=== PATIENT | female | born 2005 | race Caucasian/White ===

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

== ENCOUNTER 2025-01-23 06:40 | Emergency (ER) | payer OTHER, BC, MEDICAID, SELFPAY ==
--- OUTSIDE RECORDS SUMMARY | 2025-01-21 10:32 | XMS_ITS | Encounter Summary ---
Author Organization [facility] Address [address] [place] [address] Care Team Providers Care Associate Store Manager Name Role Phone Unavailable Primary Care Provider Unavailabl e Reason for Visit * Auth/Cert (Routine) Specialty Diagnoses / Procedures Referred By Josephine t Referred To Contact Multi Specialty Diagnoses History of colitis Melena Hematochezia Alternating constipation and diarrhea Easy bruising History of colitis Melena Hematochezia Alternating constipation and diarrhea Easy bruising Procedures NH COLONOSCOPY FLX DX W/COLLJ SPEC WHEN PFRMD NH COLONOSCOPY W/BIOPSY SINGLE/MULTIPLE NH COLORECTAL SCRN HI RISK IND NH COLSC FLX W/RMVL OF TUMOR POLYP LESION SNARE TQ NH COLSC FLX W/REMOVAL LESION BY HOT BX FORCEPS NH EGD TRANSORAL BIOPSY SINGLE/MULTIPLE NH EGD BALLOON DILATION ESOPHAGUS <30 MM DIAM NH EGD DILATION GASTRIC/DUODENAL STRICTURE NH COLON CA SCRN NOT HI RSK IND NH COLSC FLX WITH DIRECTED SUBMUCOSAL NJX ANY SBST COLONOSCOPY COLONOSCOPY COLONOSCOPY COLONOSCOPY COLONOSCOPY ESOPHAGOGASTRODUODENOSCOP Y ESOPHAGOGASTRODUODENOSCOP Y ESOPHAGOGASTRODUODENOSCOP Y Bj Cullen MD [address] [place] [address] [address] [place] [address] Phone: tel: fax: [facility] [address] [place] [phone] Phone: tel: fax: Referral ID Status Reason Start Date Expiration Date Visits Re quested Visits Authorized [id number] 1 1 Encounter Details Date Type Department Care Team (Latest Contact Info) Description 01/21/2025 10:32 AM CDT - 01/21/2025 2:57 PM CDT Hospital Encounter [facility] [address] [place] [address] [place] [phone] Bj Cullen MD [address] [place] [address] [address] [place] [address] Alpha-gal syndrome Discharge Disposition: Home or Self Care Social History Tobacco Use Types Packs/Day Years Used Date Smoking Tobacco: Never Smokeless Tobacco: Never Alcohol Use Standard Drinks/Week Comments Not Currently 0 (1 standard drink = 0.6 oz pur e alcohol) Comments No Sex and Gender Information Value Date Recorded Sex Assigned at Not on file Legal 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 Gender Identity Not on file Sexual Orientation Not on file documented as of this encounter Last Filed Vital Signs Vital Sign Reading Time Taken Comments Blood Pressure 122/74 01/21/2025 2:45 PM CDT Pulse 69 01/21/2025 2:45 PM CDT Temperature 36.4 C (97.5 F) 01/21/2025 1:25 PM CDT Respiratory Rate 12 01/21/2025 2:45 PM CDT Oxygen Saturation 100% 01/21/2025 2:45 PM CDT Inhaled Oxygen Concentration - - Weight 64.7 kg (142 lb 9.6 oz) 01/21/2025 11:05 AM CDT Height 160 cm (5' 3 ) 01/21/2025 11:05 AM CDT Body Mass Index 25.26 01/21/2025 11:05 AM CDT documented in this encounter Discharge Instructions * Discharge Instructions* Liset Castañeda, DARELL - 01/21/2025 1:33 PM CDT Colonoscopy / EGD Discharge Instructions: SPECIAL INSTRUCTIONS: Notify doctor if any of the following occur: severe pain, bright red blood in your stools or rectalbleeding, vomiting blood, temperature over 100 degrees F, black tarry stool. Gaseous discomfort is normal and expected immediately after your examination: belching and passing gas is normal, bending your knees while lying on your left side may relieve the gas, a heating pad set on low may be placed on your abdomen for discomfort, if you have unusual or severe pain that persists for more than 2 hours call your doctor. If a biopsy or polypectomy was done the doctor will contact you with the results. There may be a tiny amount of bleeding, if it persists call your doctor. Other DIET: 1. You may resume your normal diet. GENERAL INSTRUCTIONS: Call your surgeons office ([phone]) if there are any questions. If you are unable to reach him/her go to the nearest emergency room for evaluation. If you had a general or local anesthesia with sedation do not drink alcoholic beverages for 24 hours. Certain anesthetics and pain medications may produce nausea and vomiting. If these symptoms persist notify your physician. Due to the medications you have received today, do not drive or operate machinery for [address] are not to drive while taking any narcotic pain medication. EGD Findings: Normal-appearing esophagus Hill grade 3 hiatus, possible hiatal hernia, slightly irregular EG junction with mild erythema, biopsies obtained with cold forceps and retrieved for pathology Mild gastritis, linear, particular in the distal stomach, biopsies obtained with cold forceps undertreat for pathology Patent pylorus and normal-appearing duodenum Recommendations: -Await pathology., -Follow symptoms., -Will need to follow alpha gal diet and GERD diet: avoid spicy or highly condimented foods, food with high fat content, acid foods such as citrus or tomatoes, carbonated beverages and caffeine containing drinks, chocolate. Avoid NSAIDs (ibuprofen, aspirin, diclofenac, etc.) and alcohol. Avoid all tobacco products including smoking, vaping and/or chewing. Do not eat 4 hours before bed time. Do not lay down for 4 hours after eating. Colonoscopy Impression: -Normal colonoscopy to the cecum, with no evidence of neoplasia, diverticular disease, or mucosal abnormality., -Small internal hemorrhoids., -Moderate external hemorrhoids. Recommendations: -For colon cancer screening repeat colonoscopy at age 45 -Management of hemorrhoids with good hydration, goal of 64 oz of water per day, bowel hygiene with OTC fiber supplementation daily (Metamucil) with PRN use of Miralax; goal of 1-2 soft bowel movements per day with no pushing/straining. Recommend use of wet wipes or use of bidet for hygiene after bowel movements to prevent irritation/inflammation of hemorrhoids. Avoid using toilet paper as will produce more inflammation. Recommend Sitz baths 2-4 times per day to help with swelling of hemorrhoids and PRN use of topical OTC treatments (Preparation H). Return for follow-up and discussion of surgical options if symptoms from hemorrhoids do not improveafter 1-2 months. Resume anticoagulation and/or blood thinners: 2 day(s). * Attachments The following attachments cannot be sent through Care Everywhere. * Colonoscopy: Post op ([place]an) * EGD (Upper Endoscopy): Post op ([place]) * Hemorrhoids ([place]an) * Gastritis ([place]an) * Psyllium ([place]) documented in this encounter Medications at Time of Discharge EPINEPHrine (EPIPEN) 0.3 mg/0.3 mL Auto-Injector INJECT 0.3MG INTO THE MUSCLE ONCE DAILY NEEDED FOR ANAPHYLAXIS 12/23/2024 omeprazole (PriLOSEC) 40 mg Capsule, Delayed Release(E.C.) Take 1 Capsule by mouth daily. 12/12/2024 Isibloom 0.15-0.03 mg Tablet Take 1 Tablet by mouth daily. 11/28/2024 dicyclomine (BENTYL) 20 mg tablet Take 1 Tablet (20 mg) by mouth 3 times daily as needed for Pain. 20 Tablet 12/03/2024 ondansetron (ZOFRAN ODT) 4 mg Tablet, Rapid Dissolve Take 1 Tablet (4 mg) by mouth every 8 hours as needed for Nausea. Dissolve tablet on top of tongue, then swallow with saliva. 12 Tablet 12/03/2024 citalopram (CeleXA) 10 mg tablet Take 10 mg by mouth daily. 01/31/2020 documented as of this encounter H&P Notes * Bj Cullen MD - 01/21/2025 12:28 PM CDT I have reviewed the last H&P and examined the patient today and there are no changes. The plan for HOSPITAL ACCOUNT MANAGER anesthesia was reviewed and approved prior to administration of anesthesia. Source Note - Bj Cullen MD - 01/21/2025 12:28 PM CDT General Surgery Outpatient Clinic Note Patient: Ronen Almeida [id number] Chief Complaint: Subjective Establish Care (ED f/u from 12/03/24. Generalized abd pain RLQ. HX of Chron's Disease in family. HX of colitis. Needs CSP and EGD. Having 5 to 8 BM's per day. ) History of Present Illness: History of Present Illness The patient is a 19-year-old female presenting here for abdominal pain and possible colitis. She has experienced three episodes of colitis since 05/2024, characterized by nausea, persistent vomiting leading to hematemesis, and uncontrollable bowel movements. These episodes are accompanied byhot flashes, chills, hand cramps, and cognitive impairment. She reports severe abdominal pain during these episodes, but none today. She experiences mild pain during bowel movements, rating it as 3 or 4 out of 10, and occasional stomach cramps. She also reports melena every 3 to 4 days, describing her stools as tar-like in consistency. She has not observed fresh blood in her stools, except for a small amount when she first developed hemorrhoids. She experiences postprandial nausea, limiting her food intake to half a normal portion. She attempts to consume fresh vegetables but finds that they exacerbate her symptoms. She has bowel movements 5 to 8 times daily, with inconsistent stool consistency. She maintains hydration by drinking at least four 16-ounce bottles of water daily. She was previously on an acid automotive glass specialist at the age of 8 due to frequent vomiting, which was initially mistaken for heartburn. She continues to take Prilosec daily, reintroduced in 08/2024 by her primary care physician to manage her black stools. She has a history of seasonal allergies. She discontinued Celexa in 2021, which she was taking for anxiety and depression. She had a suicideattempt in 2019 and currently sees a therapist as needed. She had her adenoids removed at 6 months old and still has her tonsils. She reports easy bruising from minor bumps. PAST SURGICAL HISTORY: Adenoidectomy at 6 months old. 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 Alcohol: Does not drink alcohol anymore, last consumed in July 2024. Tobacco: Does not smoke actual tobacco or chew tobacco. Recreational Drugs: Smokes weed. FAMILY HISTORY - Maternal grandfather: Prostate cancer, currently undergoing treatment; Crohn's disease, requires an ostomy bag. - Paternal grandmother: Lymphatic cancer, currently in remission; ovarian cancer, currently in remission. - Negative for colon cancer. Allergies: No Known Allergies PMH: Past Medical History: Diagnosis Date Depression Generalized anxiety disorder PSH: Past Surgical History: Procedure Laterality Date HX ADENOIDECTOMY FH: Family History Problem Relation Name Age of Onset Cancer Maternal Grandmother Lymphoma Maternal Grandmother Crohn's Disease Maternal Grandfather Prostate Cancer Maternal Grandfather Colon Cancer Neg Hx SH: Social History Socioeconomic History Marital status: Single Tobacco Use Smoking status: Never Smokeless tobacco: Never Vaping Use Vaping status: Every Day Substance and Sexual Activity Alcohol use: Not Currently Drug use: Yes Types: Marijuana Social Drivers of Health Feeling Safe: Not At Risk (12/03/2024) Feeling Safe Patient has indicated abuse: : No Review of Systems: Behavioral/Psych: negative. Cardiovascular: negative. Constitutional: negative. Ears, nose, mouth, throat, and face: negative. Endocrine: negative. Eyes: negative. Gastrointestinal: positive for abdominal pain, change in bowel habits, constipation, diarrhea, dyspepsia, melena, nausea, and vomiting. Genitourinary:negative. Hematologic/lymphatic: positive for easy bruising. Integument/breast: negative. Musculoskeletal:negative. Neurological: negative. Respiratory: negative. Physical Exam: Objective Blood pressure 100/60, pulse 82, temperature 98 ??F (36.7 ??C), temperature source Temporal, height5' 3 (1.6 m), weight 66.2 kg (146 lb), last menstrual period 11/29/2024. Vitals: 12/16/24 0937 BP: 100/60 Pulse: 82 Temp: 98 ??F (36.7 ??C) Body mass index is 25.86 kg/m??. Physical Exam Constitutional: General: She is not in acute distress. Appearance: She is not ill-appearing, toxic-appearing or diaphoretic. HENT: Head: Normocephalic. Eyes: General: No scleral icterus. Conjunctiva/sclera: Conjunctivae normal. Cardiovascular: Rate and Rhythm: Normal rate. Pulmonary: Effort: Pulmonary effort is normal. Abdominal: General: Abdomen is flat. There is no distension. Tenderness: There is abdominal tenderness in the periumbilical area. There is no guarding or rebound. Musculoskeletal: General: No deformity or signs of injury. Skin: General: Skin is warm. Coloration: Skin is not jaundiced. Neurological: General: No focal deficit present. Mental Status: She is alert and oriented to person, place, and time. Psychiatric: Mood and Affect: Mood normal. Behavior: Behavior normal. Thought Content: Thought content normal. Judgment: Judgment normal. Results: Results Labs: Lab Results Component Value Date/Time CREAT 0.68 12/03/2024 10:15 PM Lab Results Component Value Date/Time CREAT 0.68 12/03/2024 10:15 PM BUN 8 12/03/2024 10:15 PM NA 135 (L) 12/03/2024 10:15 PM K 3.6 12/03/2024 10:15 PM CL 102 12/03/2024 10:15 PM CO2 18 (L) 12/03/2024 10:15 PM GFR >60 12/03/2024 10:15 PM Lab Results Component Value Date/Time WBC 7.6 12/03/2024 10:15 PM HGB 14.0 12/03/2024 10:15 PM HCT 39.5 12/03/2024 10:15 PM PLT 182 12/03/2024 10:15 PM MCV 86.8 12/03/2024 10:15 PM Lab Results Component Value Date/Time ALT 9 (L) 12/03/2024 10:15 PM AST 17 12/03/2024 10:15 PM ALKPHOS 49 12/03/2024 10:15 PM BILITOTAL 0.6 12/03/2024 10:15 PM No results found for: TSH , TSHULTRA , THYROIDSTIM , T3 , T3FREE , C0ABYDLB , T4 , T4FREE , TPO , THROIDAB , THYROIDMI No results found for: INR , PT , PROTIMEPOC Imaging: X-rays: Results for orders placed in visit on 01/31/20 XR KNEE 3 VW LEFT Narrative X-rays of the right knee were reviewed. No clear evidence of fracture or dislocation. Normal films. CT scan: Results for orders placed during the hospital encounter of 12/03/24 CT ABDOMEN PELVIS W CONTRAST Impression : 1. Relatively distended urinary bladder; correlate clinically for evidence of a urinary tract infection or urinary retention. 2. Trace free fluid in the dependent pelvis, most commonly physiologic. 3. Nonspecific splenomegaly. 4. No superimposed acute intra-abdominal abnormality; negative for acute appendicitis. US: No results found for this or any previous visit. Assessment and Plan: Problem List Items Addressed This Visit Digestive Nausea & vomiting Relevant Medications omeprazole (PriLOSEC) 40 mg Capsule, Delayed Release(E.C.) Hematemesis with nausea Relevant Medications omeprazole (PriLOSEC) 40 mg Capsule, Delayed Release(E.C.) Alternating constipation and diarrhea Relevant Medications omeprazole (PriLOSEC) 40 mg Capsule, Delayed Release(E.C.) Other Relevant Orders ALPHA-GAL PANEL CELIAC DISEASE ANTIBODIES US RIGHT UPR QUADRANT Melena Nervous Right lower quadrant abdominal pain Right upper quadrant abdominal pain Periumbilical abdominal pain Other History of colitis Relevant Orders ALPHA-GAL PANEL CELIAC DISEASE ANTIBODIES US RIGHT UPR QUADRANT Easy bruising Relevant Orders PROTIME-INR Other Visit Diagnoses Pre-operative clearance - Primary Relevant Orders CBC WITH DIFFERENTIAL COMPREHENSIVE METABOLIC PANEL Hematochezia Relevant Orders ALPHA-GAL PANEL CELIAC DISEASE ANTIBODIES US RIGHT UPR QUADRANT Assessment & Plan 1. Hematemesis and melena. These symptoms suggest potential bleeding in the upper gastrointestinal tract. An EGD is recommended for further investigation. She is advised to cease vaping due to its potential impact on the intestines and associated pain. Avoidance of carbonated drinks and alcohol is also recommended. Basic blood work will be conducted today to monitor for any blood loss. Will investigate for alpha gal and celiac disease. 2. Nausea and abdominal pain. These symptoms may be related to the gastrointestinal issues or could indicate a separate problem. An ultrasound of the gallbladder will be performed. If the ultrasound results are normal, a HIDA scan may be considered. 3. Alternating diarrhea and constipation. This symptoms, along with the abdominal pain and history of colitis, warrants a colonoscopy. She isencouraged to maintain a minimum daily water intake of 64 ounces. A fiber supplement, Metamucil, isrecommended, starting with half a tablespoon twice daily for a week, then increasing to a tablespoon. 4. History of colitis. Will proceed with colonoscopy with her EGD on 01/21/2025. If Crohn's disease or ulcerative colitis is diagnosed, medical management will be initiated, and she will be referred to a GI doctor in [place]. 5. Easy bruising. INR and PTT tests will be conducted due to her history of bleeding and easy bruising, which may indicate a coagulation defect. The assessment and plan for EGD and colonoscopy was discussed with Ronen Almeida. Indicationsfor the procedure and alternatives, with its potential benefits as well as risks, complications andconsequences were explained to her. The complications and risks discussed included: pain, bleeding,bloating, damage to any adjacent organs/structures, GI tract perforation, aspiration, requirement for further procedures, medication reactions. All questions were answered to the patient's satisfaction; she expressed understanding and provided consent to proceed with the plan. The assessment and plan was discussed with Ronen Almeida and/or her family, she showed understanding and agreed to proceed with the plan. All questions were answered to the patient's satisfaction. The author of this note, patient (or authorized patient relations representative), and all other persons present consent to the audio recording of this visit for charting documentation purposes. Bj Alanis MD TOBACCO COUNSELING She is not a tobacco/nicotine user. Blood pressure found to be within normal limits and the patient is without complaints. No physicianconsult required. * Bj Cullen MD - 01/21/2025 12:28 PM CDT General Surgery Outpatient Clinic Note Patient: Ronen Almeida [id number] Chief Complaint: Subjective Establish Care (ED f/u from 12/03/24. Generalized abd pain RLQ. HX of Chron's Disease in family. HX of colitis. Needs CSP and EGD. Having 5 to 8 BM's per day. ) History of Present Illness: History of Present Illness The patient is a 19-year-old female presenting here for abdominal pain and possible colitis. She has experienced three episodes of colitis since 05/2024, characterized by nausea, persistent vomiting leading to hematemesis, and uncontrollable bowel movements. These episodes are accompanied byhot flashes, chills, hand cramps, and cognitive impairment. She reports severe abdominal pain during these episodes, but none today. She experiences mild pain during bowel movements, rating it as 3 or 4 out of 10, and occasional stomach cramps. She also reports melena every 3 to 4 days, describing her stools as tar-like in consistency. She has not observed fresh blood in her stools, except for a small amount when she first developed hemorrhoids. She experiences postprandial nausea, limiting her food intake to half a normal portion. She attempts to consume fresh vegetables but finds that they exacerbate her symptoms. She has bowel movements 5 to 8 times daily, with inconsistent stool consistency. She maintains hydration by drinking at least four 16-ounce bottles of water daily. She was previously on an acid automotive glass specialist at the age of 8 due to frequent vomiting, which was initially mistaken for heartburn. She continues to take Prilosec daily, reintroduced in 08/2024 by her primary care physician to manage her black stools. She has a history of seasonal allergies. She discontinued Celexa in 2021, which she was taking for anxiety and depression. She had a suicideattempt in 2019 and currently sees a therapist as needed. She had her adenoids removed at 6 months old and still has her tonsils. She reports easy bruising from minor bumps. PAST SURGICAL HISTORY: Adenoidectomy at 6 months old. 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 Alcohol: Does not drink alcohol anymore, last consumed in July 2024. Tobacco: Does not smoke actual tobacco or chew tobacco. Recreational Drugs: Smokes weed. FAMILY HISTORY - Maternal grandfather: Prostate cancer, currently undergoing treatment; Crohn's disease, requires an ostomy bag. - Paternal grandmother: Lymphatic cancer, currently in remission; ovarian cancer, currently in remission. - Negative for colon cancer. Allergies: No Known Allergies PMH: Past Medical History: Diagnosis Date Depression Generalized anxiety disorder PSH: Past Surgical History: Procedure Laterality Date HX ADENOIDECTOMY FH: Family History Problem Relation Name Age of Onset Cancer Maternal Grandmother Lymphoma Maternal Grandmother Crohn's Disease Maternal Grandfather Prostate Cancer Maternal Grandfather Colon Cancer Neg Hx SH: Social History Socioeconomic History Marital status: Single Tobacco Use Smoking status: Never Smokeless tobacco: Never Vaping Use Vaping status: Every Day Substance and Sexual Activity Alcohol use: Not Currently Drug use: Yes Types: Marijuana Social Drivers of Health Feeling Safe: Not At Risk (12/03/2024) Feeling Safe Patient has indicated abuse: : No Review of Systems: Behavioral/Psych: negative. Cardiovascular: negative. Constitutional: negative. Ears, nose, mouth, throat, and face: negative. Endocrine: negative. Eyes: negative. Gastrointestinal: positive for abdominal pain, change in bowel habits, constipation, diarrhea, dyspepsia, melena, nausea, and vomiting. Genitourinary:negative. Hematologic/lymphatic: positive for easy bruising. Integument/breast: negative. Musculoskeletal:negative. Neurological: negative. Respiratory: negative. Physical Exam: Objective Blood pressure 100/60, pulse 82, temperature 98 ??F (36.7 ??C), temperature source Temporal, height5' 3 (1.6 m), weight 66.2 kg (146 lb), last menstrual period 11/29/2024. Vitals: 12/16/24 0937 BP: 100/60 Pulse: 82 Temp: 98 ??F (36.7 ??C) Body mass index is 25.86 kg/m??. Physical Exam Constitutional: General: She is not in acute distress. Appearance: She is not ill-appearing, toxic-appearing or diaphoretic. HENT: Head: Normocephalic. Eyes: General: No scleral icterus. Conjunctiva/sclera: Conjunctivae normal. Cardiovascular: Rate and Rhythm: Normal rate. Pulmonary: Effort: Pulmonary effort is normal. Abdominal: General: Abdomen is flat. There is no distension. Tenderness: There is abdominal tenderness in the periumbilical area. There is no guarding or rebound. Musculoskeletal: General: No deformity or signs of injury. Skin: General: Skin is warm. Coloration: Skin is not jaundiced. Neurological: General: No focal deficit present. Mental Status: She is alert and oriented to person, place, and time. Psychiatric: Mood and Affect: Mood normal. Behavior: Behavior normal. Thought Content: Thought content normal. Judgment: Judgment normal. Results: Results Labs: Lab Results Component Value Date/Time CREAT 0.68 12/03/2024 10:15 PM Lab Results Component Value Date/Time CREAT 0.68 12/03/2024 10:15 PM BUN 8 12/03/2024 10:15 PM NA 135 (L) 12/03/2024 10:15 PM K 3.6 12/03/2024 10:15 PM CL 102 12/03/2024 10:15 PM CO2 18 (L) 12/03/2024 10:15 PM GFR >60 12/03/2024 10:15 PM Lab Results Component Value Date/Time WBC 7.6 12/03/2024 10:15 PM HGB 14.0 12/03/2024 10:15 PM HCT 39.5 12/03/2024 10:15 PM PLT 182 12/03/2024 10:15 PM MCV 86.8 12/03/2024 10:15 PM Lab Results Component Value Date/Time ALT 9 (L) 12/03/2024 10:15 PM AST 17 12/03/2024 10:15 PM ALKPHOS 49 12/03/2024 10:15 PM BILITOTAL 0.6 12/03/2024 10:15 PM No results found for: TSH , TSHULTRA , THYROIDSTIM , T3 , T3FREE , [id number] , T4 , T4FREE , TPO , THROIDAB , THYROIDMI No results found for: INR , PT , PROTIMEPOC Imaging: X-rays: Results for orders placed in visit on 01/31/20 XR KNEE 3 VW LEFT Narrative X-rays of the right knee were reviewed. No clear evidence of fracture or dislocation. Normal films. CT scan: Results for orders placed during the hospital encounter of 12/03/24 CT ABDOMEN PELVIS W CONTRAST Impression : 1. Relatively distended urinary bladder; correlate clinically for evidence of a urinary tract infection or urinary retention. 2. Trace free fluid in the dependent pelvis, most commonly physiologic. 3. Nonspecific splenomegaly. 4. No superimposed acute intra-abdominal abnormality; negative for acute appendicitis. US: No results found for this or any previous visit. Assessment and Plan: Problem List Items Addressed This Visit Digestive Nausea & vomiting Relevant Medications omeprazole (PriLOSEC) 40 mg Capsule, Delayed Release(E.C.) Hematemesis with nausea Relevant Medications omeprazole (PriLOSEC) 40 mg Capsule, Delayed Release(E.C.) Alternating constipation and diarrhea Relevant Medications omeprazole (PriLOSEC) 40 mg Capsule, Delayed Release(E.C.) Other Relevant Orders ALPHA-GAL PANEL CELIAC DISEASE ANTIBODIES US RIGHT UPR QUADRANT Melena Nervous Right lower quadrant abdominal pain Right upper quadrant abdominal pain Periumbilical abdominal pain Other History of colitis Relevant Orders ALPHA-GAL PANEL CELIAC DISEASE ANTIBODIES US RIGHT UPR QUADRANT Easy bruising Relevant Orders PROTIME-INR Other Visit Diagnoses Pre-operative clearance - Primary Relevant Orders CBC WITH DIFFERENTIAL COMPREHENSIVE METABOLIC PANEL Hematochezia Relevant Orders ALPHA-GAL PANEL CELIAC DISEASE ANTIBODIES US RIGHT UPR QUADRANT Assessment & Plan 1. Hematemesis and melena. These symptoms suggest potential bleeding in the upper gastrointestinal tract. An EGD is recommended for further investigation. She is advised to cease vaping due to its potential impact on the intestines and associated pain. Avoidance of carbonated drinks and alcohol is also recommended. Basic blood work will be conducted today to monitor for any blood loss. Will investigate for alpha gal and celiac disease. 2. Nausea and abdominal pain. These symptoms may be related to the gastrointestinal issues or could indicate a separate problem. An ultrasound of the gallbladder will be performed. If the ultrasound results are normal, a HIDA scan may be considered. 3. Alternating diarrhea and constipation. This symptoms, along with the abdominal pain and history of colitis, warrants a colonoscopy. She isencouraged to maintain a minimum daily water intake of 64 ounces. A fiber supplement, Metamucil, isrecommended, starting with half a tablespoon twice daily for a week, then increasing to a tablespoon. 4. History of colitis. Will proceed with colonoscopy with her EGD on 01/21/2025. If Crohn's disease or ulcerative colitis is diagnosed, medical management will be initiated, and she will be referred to a GI doctor in [place]. 5. Easy bruising. INR and PTT tests will be conducted due to her history of bleeding and easy bruising, which may indicate a coagulation defect. The assessment and plan for EGD and colonoscopy was discussed with Ronen Almeida. Indicationsfor the procedure and alternatives, with its potential benefits as well as risks, complications andconsequences were explained to her. The complications and risks discussed included: pain, bleeding,bloating, damage to any adjacent organs/structures, GI tract perforation, aspiration, requirement for further procedures, medication reactions. All questions were answered to the patient's satisfaction; she expressed understanding and provided consent to proceed with the plan. The assessment and plan was discussed with Ronen Almeida and/or her family, she showed understanding and agreed to proceed with the plan. All questions were answered to the patient's satisfaction. The author of this note, patient (or authorized patient relations representative), and all other persons present consent to the audio recording of this visit for charting documentation purposes. Bj Alanis MD TOBACCO COUNSELING She is not a tobacco/nicotine user. Blood pressure found to be within normal limits and the patient is without complaints. No physicianconsult required. documented in this encounter OR Notes * Operative Report - Bj Cullen MD - 01/21/2025 1:22 PM CDT Colonoscopy Procedure Note Procedure: Colonoscopy --diagnostic Pre-operative Diagnosis: Alternating constipation and diarrhea, melena, history of colitis, abdominal pain Post-operative Diagnosis: normal, hemorrhoids Indications: Active Problems: Nausea & vomiting Hematemesis with nausea Alternating constipation and diarrhea Melena Right lower quadrant abdominal pain Periumbilical abdominal pain History of colitis Alpha-gal syndrome Sedation: By anesthesia. Procedure Details Informed consent was obtained for the procedure, including sedation. Risks of perforation, hemorrhage, adverse drug reaction and aspiration were discussed. Plan for sedation/anesthesia with a supervised HOSPITAL ACCOUNT MANAGER provider was discussed. The patient was placed in the left lateral decubitus position. Based on the pre- procedure assessment, including review of the patient's medical history, medications, allergies, and review of systems,the patient had been deemed to be an appropriate candidate for conscious sedation; and was therefore sedated by anesthesia. The patient was monitored continuously with ECG tracing, pulse oximetry, blood pressure monitoring, and direct observations. A rectal examination was performed. The Olympus colonoscope was inserted into the rectum and advanced under direct vision to the cecum, which was identified by the ileocecal valve and appendiceal orifice. The quality of the colonic preparation was excellent, please see Conway score below. A carefulinspection was made as the colonoscope was withdrawn, including a retroflexed view of the rectum; findings and interventions are described below. Appropriate photodocumentation was obtained. Findings: -normal colonic mucosa throughout -hemorrhoids (internal and external), Moderate in size Conway bowel preparation scale score: Location and score: right colon 3, transverse colon 3, left colon 3. Total Conway score: 9. Score 0: Unprepared colon with mucosa not seen because of solid stool that cannot be cleared Score 1: Portion of the mucosa of the colon segment seen, but other areas of the colon segment not seen well because of staining, residual stool, and/or opaque liquid Score 2: Minor amount of residual staining, small fragments of stool and/or opaque liquid, but mostmucosa of the colon segment seen well Score 3: Entire mucosa of colon segment seen well with no residual staining, small fragments of stool, and/or opaque liquid Specimens: None Complications: None; patient tolerated the procedure well. Estimated Blood Loss: Nil. Attending Attestation: I performed the procedure. Impression: -Normal colonoscopy to the cecum, with no evidence of neoplasia, diverticular disease, or mucosal abnormality., -Small internal hemorrhoids., -Moderate external hemorrhoids. Recommendations: -For colon cancer screening repeat colonoscopy at age 45 -Management of hemorrhoids with good hydration, goal of 64 oz of water per day, bowel hygiene with OTC fiber supplementation daily (Metamucil) with PRN use of Miralax; goal of 1-2 soft bowel movements per day with no pushing/straining. Recommend use of wet wipes or use of bidet for hygiene after bowel movements to prevent irritation/inflammation of hemorrhoids. Avoid using toilet paper as will produce more inflammation. Recommend Sitz baths 2-4 times per day to help with swelling of hemorrhoids and PRN use of topical OTC treatments (Preparation H). Return for follow-up and discussion of surgical options if symptoms from hemorrhoids do not improveafter 1-2 months. Resume anticoagulation and/or blood thinners: 2 day(s). Bj Alanis MD CC: No primary care provider on file. * Operative Report - Bj Cullen MD - 01/21/2025 1:20 PM CDT Ronen Almeida 2005 CSN:[id number] 01/21/2025 Esophagogastroduodenoscopy Procedure Note Referring Physician: No primary care provider on file. Procedure: Esophagogastroduodenoscopy --diagnostic, with biopsy Pre op Diagnosis: Active Problems: Nausea & vomiting Hematemesis with nausea Alternating constipation and diarrhea Melena Right lower quadrant abdominal pain Periumbilical abdominal pain History of colitis Alpha-gal syndrome Post op Diagnosis: Possible sliding hiatal hernia Mild gastritis Sedation: By anesthesia. Procedure Details Patient identification and proposed procedure were verified prior to the procedure by the physicianand nurse. Informed consent was obtained for the procedure, including conscious sedation, risks of infection, perforation, intraprocedural and post procedural hemorrhage, adverse drug reaction, missed cancer, aspiration and complications which could lead to were discussed. Plan for sedation/anesthesia with a supervised HOSPITAL ACCOUNT MANAGER provider was discussed. The patient was placed in the left lateral decubitus position. Based on the pre- procedure assessment, including review of the patient's medical history, medications, allergies, and review of systems,she had been deemed to be an appropriate candidate for conscious sedation; she was therefore sedated by anesthesia. She was monitored continuously with ECG tracing, pulse oximetry, blood pressure monitoring, and direct observation. The Olympus gastroscope was inserted into the mouth and advanced under direct vision to thesecond portion of the duodenum. A careful inspection was made as the gastroscope was withdrawn, including a retroflexed view of the proximal stomach; findings and interventions are described below. Appropriate photodocumentation was obtained. Findings: Normal-appearing esophagus Hill grade 3 hiatus, possible hiatal hernia, slightly irregular EG junction with mild erythema, biopsies obtained with cold forceps and retrieved for pathology Mild gastritis, linear, particular in the distal stomach, biopsies obtained with cold forceps undertreat for pathology Patent pylorus and normal-appearing duodenum Complications: None; patient tolerated the procedure well. Estimated Blood Loss: Nil. Attending Attestation: I performed the procedure. Recommendations: -Await pathology., -Follow symptoms., -Will need to follow alpha gal diet and GERD diet: avoid spicy or highly condimented foods, food with high fat content, acid foods such as citrus or tomatoes, carbonated beverages and caffeine containing drinks, chocolate. Avoid NSAIDs (ibuprofen, aspirin, diclofenac, etc.) and alcohol. Avoid all tobacco products including smoking, vaping and/or chewing. Do not eat 4 hours before bed time. Do not lay down for 4 hours after eating. Bj Alanis MD CC: No primary care provider on file. documented in this encounter Plan of Treatment Not on file documented as of this encounter Procedures Procedure Name Priority Date/Time Associated Diagnosis Comments NH EGD DILATION GASTRIC/DUODENAL STRICTURE 01/21/2025 1:21 PM CDT History of colitis Melena Hematochezia Alternating constipation and diarrhea Easy bruising NH EGD BALLOON DILATION ESOPHAGUS <30 MM DIAM 01/21/2025 1:21 PM CDT History of colitis Melena Hematochezia Alternating constipation and diarrhea Easy bruising NH EGD TRANSORAL BIOPSY SINGLE/MULTIPLE 01/21/2025 1:21 PM CDT History of colitis Melena Hematochezia Alternating constipation and diarrhea Easy bruising NH COLSC FLX W/REMOVAL LESION BY HOT BX FORCEPS 01/21/2025 1:21 PM CDT History of colitis Melena Hematochezia Alternating constipation and diarrhea Easy bruising NH COLSC FLX W/RMVL OF TUMOR POLYP LESION SNARE TQ 01/21/2025 1:21 PM CDT History of colitis Melena Hematochezia Alternating constipation and diarrhea Easy bruising NH COLORECTAL SCRN HI RISK IND 01/21/2025 1:21 PM CDT History of colitis Melena Hematochezia Alternating constipation and diarrhea Easy bruising NH COLONOSCOPY W/BIOPSY SINGLE/MULTIPLE 01/21/2025 1:21 PM CDT History of colitis Melena Hematochezia Alternating constipation and diarrhea Easy bruising NH COLONOSCOPY FLX DX W/COLLJ SPEC WHEN PFRMD 01/21/2025 1:21 PM CDT History of colitis Melena Hematochezia Alternating constipation and diarrhea Easy bruising PATHOLOGY Pathology 01/21/2025 1:02 PM CDT History of colitis Melena Hematochezia Alternating constipation and diarrhea Easy bruising HCG QUALITATIVE, URINE Routine 01/21/2025 11:11 AM CDT documented in this encounter Results * PATHOLOGY (01/21/2025 1:02 PM CDT) CASE REPORT Surgical Pathology Report Case: [id number] Authorizing Provider: Bj Cullen Collected: 01/21/2025 01:02 PM MD [place] Ordering Location: [facility] Received: 01/22/2025 06:40 AM [facility] Pathologist: Jose Medina MD Specimens: A) - Stomach, antrum B) - Stomach, body C) - GE junction 9:42 AM CDT [facility] [employer] [facility] FINAL DIAGNOSIS A. Stomach, antrum, biopsy - benign gastric mucosa with no significant inflammation, superficial biopsy. / B. Stomach, body, biopsy - benign gastric mucosa with no significant inflammation. / C. GE junction, biopsy - benign gastric mucosa with mild chronic inflammation - no evidence of goblet cell metaplasia, dysplasia, or malignancy. Jose Medina MD [id number] 9:42 AM CDT [facility] at 0942 CDT GROSS DESCRIPTION A. Received in formalin labeled Anabaptism -stomach biopsy of antrum is a single fragment of peña-pink soft tissue, 0.2 cm in greatest dimension. The specimen is submitted entirely in A1. B. Received in formalin labeled Anabaptism -stomach biopsy of gastric body is a single fragment of peña-pink soft tissue, 0.2 cm in greatest dimension. The specimen is submitted entirely in B1. C. Received in formalin labeled Anabaptism -GE junction biopsy is a single fragment of peña-pink soft tissue, 0.2 cm in greatest dimension. The specimen is submitted entirely in C1. Grossed by: Haritha Villeda MS, PA (ASC)CM 5 9:42 AM CDT [facility] OPERATIVE PROCEDURE 1: COLONOSCOPY 2: ESOPHAGOGASTRODUODENOSCO PY 5 9:42 AM T [facility] CLINICAL INFORMATION Z87.19-History of colitis K92.1-Melena K92.1-Hematochezia R19.8-Alternating constipation and diarrhea R23.3-Easy bruising 5 9:42 AM T [facility] COMMENT The [employer] voice-activated dictation system may have been used in the creation of this report. Inherent to this system is the possibility of errors in syntax, grammar, punctuation, or other areas that could impact interpretation. If there are interpretive questions about the report, please contact the performing pathologist. Unless gross only is specified in the diagnosis, the microscopic examination substantiates the above cited diagnosis. The performance characteristics of all immunohistochemical stains cited in this report (if any) were determined by the [facility] of [facility] in compliance with CLIA'88 regulations. Some of these tests rely on the use of analyte specific reagents and are subject to specific labeling requirements by the FDA. All controls show appropriate reactivity. This testing was developed by the [facility] of [facility]. It has not been cleared or approved by the FDA. The FDA has determined that such clearance or approval is not necessary. 5 9:42 AM T [facility] Tissue ENTIRE STOMACH / Unknown Collection / Unknown 01/21/2025 1:02 PM CDT 01/22/2025 6:40 AM CDT Tissue specimen (specimen) ENTIRE STOMACH / Unknown 01/21/2025 1:02 PM CDT 01/22/2025 6:40 AM CDT Tissue specimen (specimen) (GE junction) 01/21/2025 1:03 PM CDT 01/22/2025 6:40 AM CDT us Bj Alanis MD PATHOLOGY/CYTOL OGY ORDERABLES Final Result Performing Organization Address [facility] Co de Phone Number [facility] CLIA # [id number] [facility] [address] * (ABNORMAL) HCG QUALITATIVE, URINE (01/21/2025 11:11 AM CDT) HCG QUAL URINE Negative Negative 01/21/2025 11:16 AM CDT [facility] COLOR UA Dark Yellow Pale to Dark Yellow 01/21/2025 11:16 AM CDT [facility] CLARITY UA Slightly Cloudy(A) Clear 01/21/2025 11:16 AM CDT [facility] Urine URINE SPECIMEN OBTAINED BY CLEAN CATCH PROCEDURE / Unknown Collection / Unknown 01/21/2025 11:11 AM CDT 01/21/2025 11:11 AM CDT us Bj Alanis MD URINE ORDERABLE S Final Result Performing Organization Address [facility] Co de Phone Number [facility] CLIA # [id number] [address] [place] [phone] documented in this encounter Visit Diagnoses Diagnosis History of colitis Melena Blood in stool Hematochezia Blood in stool Alternating constipation and diarrhea Other symptoms involving digestive system Easy bruising Other symptoms involving skin and integumentary tissues Alpha-gal syndrome Hematemesis with nausea Nausea & vomiting Nausea with vomiting Periumbilical abdominal pain Abdominal pain, periumbilic Right lower quadrant abdominal pain Abdominal pain, right lower quadrant documented in this encounter Admitting Diagnoses Diagnosis Alternating constipation and diarrhea Other symptoms involving digestive system History of colitis Melena Blood in stool documented in this encounter Administered Medications Inactive Administered Medications - up to 3 most recent administrations Medication Order MAR Action Action Date Dose Rate Site diphenhydrAMINE (BENADRYL) injection 12.5 mg 12.5 mg, IV, ONE TIME ONLY, 1 dose, On Mon01/21/25 at 1345, Routine Given 01/21/2025 1:51 PM CDT 12.5 mg lactated ringers infusion IV, at 125 mL/hr, CONTINUOUS, Starting on Mon01/21/25 at 1115, Until Mon01/21/25 at 1658, Routine New Bag 01/21/2025 12:54 PM CDT lactated ringers infusion IV, at 125 mL/hr, POST-PROCEDURE CONTINUOUS, Starting on Mon01/21/25 at 1130, Until Mon01/21/25 at 1658, Routine, PACU New Bag 01/21/2025 2:17 PM CDT 125 mL/hr Started by Another Clinician 01/21/2025 1:25 PM CDT 125 mL/hr naloxone (NARCAN) 0.4 mg/mL injection 0.1-0.4 mg 0.1-0.4 mg, IV, SEE ADMIN INSTRUCTIONS, Starting on Mon01/21/25 at 1115, Until Mon01/21/25 at 1658, Routine, PACU ondansetron (ZOFRAN) 4 mg/2 mL injection 4 mg 4 mg, IV, POST-PROCEDURE ONCE PRN, 1 dose, Starting on Mon01/21/25 at 1116, Until Mon01/21/25 at 1330, Nausea/Emesis, Routine, PACU Given 01/21/2025 1:30 PM CDT 4 mg ondansetron (ZOFRAN) 4 mg/2 mL injection 4 mg 4 mg, IV, ONE TIME ONLY, 1 dose, On Mon01/21/25 at 1345, Routine Given 01/21/2025 1:46 PM CDT 4 mg prochlorperazine (COMPAZINE) injection 5 mg 5 mg, IV, ONE TIME ONLY, 1 dose, On Mon01/21/25 at 1415, Routine Given 01/21/2025 2:17 PM CDT 5 mg scopolamine (TRANSDERM-SCOP) 1 mg/72 hr transdermal patch 1 Patch 1 Patch, Transdermal, ONE TIME ONLY, 1 dose, On Mon01/21/25 at 1445, Routine Applied 01/21/2025 2:45 PM CDT 1 Patch Ear, Left documented in this encounter Active and Recently Administered Medications Times are shown in CDT. Scheduled Medication Order 01/19/2025 01/20/2025 01/21/2025 diphenhydrAMINE (BENADRYL) injection 12.5 mg (COMPLETED) 12.5 mg, IV, ONE TIME ONLY, 1 dose, On Mon01/21/25 at 1345, Routine 1351 (Given - Provid er: Liset Castañeda RN) naloxone (NARCAN) 0.4 mg/mL injection 0.1-0.4 mg 0.1-0.4 mg, IV, SEE ADMIN INSTRUCTIONS, Starting on Mon01/21/25 at 1115, Until Mon01/21/25 at 1658, Routine, PACU ondansetron (ZOFRAN) 4 mg/2 mL injection 4 mg (COMPLETED) 4 mg, IV, ONE TIME ONLY, 1 dose, On Mon01/21/25 at 1345, Routine 1346 (Given - Provid er: Liset Castañeda RN) prochlorperazine (COMPAZINE) injection 5 mg (COMPLETED) 5 mg, IV, ONE TIME ONLY, 1 dose, On Mon01/21/25 at 1415, Routine 1417 (Given - Provid er: Liset Castañeda RN) scopolamine (TRANSDERM-SCOP) 1 mg/72 hr transdermal patch 1 Patch 1 Patch, Transdermal, ONE TIME ONLY, 1 dose, On Mon01/21/25 at 1445, Routine 1445 (Applied - Prov ider: Liset Castañeda RN)1457 (Due: Removed - Provider: PROVIDER, DISCHARGE PATIENT - Comment: Time automatically adjusted from order being discontinued) Continuous Medication Order 01/19/2025 01/20/2025 01/21/2025 lactated ringers infusion IV, at 125 mL/hr, CONTINUOUS, Starting on Mon01/21/25 at 1115, Until Mon01/21/25 at 1658, Routine 1254 (New Bag - Prov ider: Magnus Beltran CRNA)1318 (Fluid Volume - Provider: Magnus Beltran CRNA)1658 (Due: Order Ending - Provider: PROVIDER, DISCHARGE PATIENT - Comment: [Order ends at this time. Document the following action when infusion is complete: Stopped]) lactated ringers infusion IV, at 125 mL/hr, POST-PROCEDURE CONTINUOUS, Starting on Mon01/21/25 at 1130, Until Mon01/21/25 at 1658, Routine, PACU 1325 (Started by Ano ther Clinician - Provider: Liset Castañeda RN - Comment: 600 ml ltc)1417 (New Bag - Provider: Liset Castañeda RN)1447 (Stopped - Provider: Liset Castañeda RN - Comment: 500 ml ltc) PRN Medication Order 01/19/2025 01/20/2025 01/21/2025 ondansetron (ZOFRAN) 4 mg/2 mL injection 4 mg (COMPLETED) 4 mg, IV, POST-PROCEDURE ONCE PRN, 1 dose, Starting on Mon01/21/25 at 1116, Until Mon01/21/25 at 1330, Nausea/Emesis, Routine, PACU 1330 (Given - Provid er: Liset Castañeda RN) documented in this encounter
--- OUTSIDE RECORDS SUMMARY | 2025-01-21 12:46 | XMS_ITS | Encounter Summary ---
Author Organization [facility] Address [address] [place] [address] Care Team Providers Care Director Of Planning Name Role Phone Unavailable Primary Care Provider Unavailabl e Reason for Visit * Auth/Cert (Routine) Specialty Diagnoses / Procedures Referred By Josephine t Referred To Contact Multi Specialty Diagnoses History of colitis Melena Hematochezia Alternating constipation and diarrhea Easy bruising History of colitis Melena Hematochezia Alternating constipation and diarrhea Easy bruising Procedures VA COLONOSCOPY FLX DX W/COLLJ SPEC WHEN PFRMD VA COLONOSCOPY W/BIOPSY SINGLE/MULTIPLE VA COLORECTAL SCRN HI RISK IND VA COLSC FLX W/RMVL OF TUMOR POLYP LESION SNARE TQ VA COLSC FLX W/REMOVAL LESION BY HOT BX FORCEPS VA EGD TRANSORAL BIOPSY SINGLE/MULTIPLE VA EGD BALLOON DILATION ESOPHAGUS <30 MM DIAM VA EGD DILATION GASTRIC/DUODENAL STRICTURE VA COLON CA SCRN NOT HI RSK IND VA COLSC FLX WITH DIRECTED SUBMUCOSAL NJX ANY SBST COLONOSCOPY COLONOSCOPY COLONOSCOPY COLONOSCOPY COLONOSCOPY ESOPHAGOGASTRODUODENOSCOP Y ESOPHAGOGASTRODUODENOSCOP Y ESOPHAGOGASTRODUODENOSCOP Y Bj Cullen MD [address] [place] [address] [address] [place] [address] Phone: tel: fax: [facility] [address] [place] [phone] Phone: tel: fax: Referral ID Status Reason Start Date Expiration Date Visits Re quested Visits Authorized [id number] 1 1 Encounter Details Date Type Department Care Team (Late st Contact Info) Description 01/21/2025 12:46 PM CDT Anesthesia Event [facility] [address] [place] [phone] Beltran Magnus PAMELA Alfaro [address] [place] [phone] Shey YuanPAMELA [address] [place] [address], [place] [phone] Anesthesia Record Procedure Summary Procedure Name Responsible Anesthesiologist Anesthesia Start Time Anesthesia Stop Time COLONOSCOPY (Anus) Magnus Beltran CRNA 01/21/25 1246 01/21/25 1325 Events Date Time Event Comment 01/21/2025 1114 AN Equip Check Anesthesia eq uipment and materials checked in accordance with local policy. 1142 1246 An Start 1246 An Start Data 1246 In Room This event disp lays the In Room time documented in the Surgical Log. Deleting this event will not remove it from the log but will remove it from the Grid and Graph timeline. 1252 Pre-Induction Immediate pre- induction anesthetic assessment performed. Vital signs as noted on graphic. 1252 An Induction 1252 Anesthesia Ready 1254 Procedure Start This event d isplays the Procedure Start time documented in the Surgical Log. Deleting this event will not remove it from the log but will remove it from the Grid and Graph timeline. 1319 Procedure Stop This event di splays the Procedure Stop time documented in the Surgical Log. Deleting this event will not remove it from the log but will remove it from the Grid and Graph timeline. 1320 an stop data 1320 Out of Room This event disp lays the Out of Room time documented in the Surgical Log. Deleting this event will not remove it from the log but will remove it from the Grid and Graph timeline. 1325 An Stop 1325 Hand-off to Receiving Clinic bryan Meds Name Total midazolam (VERSED) 1 mg/mL injection 2 mg lidocaine PF (XYLOCAINE MPF) 2% injectio n 2 mL propofol (DIPRIVAN) 10 mg/mL injection 142.28 mg lactated ringers infusion 400 mL * Agents Name O2 * Blood No blood administrations on file. Lines, Drains, and Airways Type Details Placement Removal Peripheral IV Orientation: Left, Posterior; Location: Hand; Gauge: 20 gauge; Needle Length: 1.16 in length; Patient Tolerance: tolerated well; Removal Indication: removed per policy, no longer indicated, removed per order; Removal Interventions: direct pressure, catheter intact 01/21/25 1111 by Cary Mitchell RN 01/21/25 1449 by Liset Castañeda RN documented in this encounter Social History Tobacco Use Types Packs/Day Years Used Date Smoking Tobacco: Never Smokeless Tobacco: Never Alcohol Use Standard Drinks/Week Comments Not Currently 0 (1 standard drink = 0.6 oz pur e alcohol) Comments No Sex and Gender Information Value Date Recorded Sex Assigned at Not on file 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 I completed my handoff to the receiving nurse during which we: 1. Identified the patient 2. Identified the responsible provider 3. Reviewed the pertinent medical history 4. Discussed the surgical course 5. Reviewed intra-op anesthesia management and issues during anesthesia 6. Set expectations for post-procedure period 7. Orders as necessary and appropriate for continuation of care are present in Epic. 8. Allowed opportunity for questions and acknowledgement of understanding. Vital Signs:phase 2 recovery stable Vitals Value Taken Time BP Temp Resp SpO2 Pulse Heart Rate 1:27 PM Magnus Beltran CRNA * Anesthesia Preprocedure Evaluation - Angeli Villegas CRNA - 01/21/2025 11:41 AM CDT Relevant Problems No relevant active problems Anesthesia Evaluation Patient summary reviewed and Nursing notes reviewed Airway Mallampati: II TM distance: >3 FB Neck ROM: full Dental (+) natural Pulmonary - normal exam breath sounds clear to auscultation ROS comment: Vapes and smokes marijuana daily; last smoked 01/20 pm Cardiovascular - negative ROS and normal exam Neuro/Psych (+) psychiatric history GI/Hepatic/Renal - negative ROS (+) bowel prep Endo/Other - negative ROS Abdominal - normal exam Anesthesia History No history of anesthetic complications. Latest Reference Range & Units 01/21/25 11:11 HCG QUAL URINE Negative Negative Anesthesia Plan ASA Final: 1 MAC N/A induction NPO status > 8 hours Anesthetic plan and risks discussed with Patient. Plan discussed with Cemetery Workers Supervisor and Surgeon/Proceduralists. Post-op Pain Control Plan to use Per surgeon and IV or IM medication for post-op pain control. documented in this encounter Plan of Treatment Not on file documented as of this encounter Visit Diagnoses Not on filedocumented in this encounter Administered Medications Inactive Administered Medications - up to 3 most recent administrations Medication Order MAR Action Action Date Dose Rate Site lactated ringers infusion IV, at 125 mL/hr, CONTINUOUS, Starting on Mon01/21/25 at 1115, Until Mon01/21/25 at 1658, Routine New Bag 01/21/2025 12:54 PM CDT lidocaine PF 2% (XYLOCAINE MPF) injection IV, INTRA-PROCEDURE PRN, Starting on Mon01/21/25 at 1252, Until Mon01/21/25 at 1328, Routine, Anesthesia Intra-op Given 01/21/2025 12:52 PM CDT 2 mL midazolam (VERSED) injection IV, INTRA-PROCEDURE PRN, Starting on Mon01/21/25 at 1252, Until Mon01/21/25 at 1328, Routine, Anesthesia Intra-op Given 01/21/2025 12:52 PM CDT 2 mg propofoL (DIPRIVAN) injection IV, INTRA-PROCEDURE CONTINUOUS PRN, Starting on Mon01/21/25 at 1252, Until Mon01/21/25 at 1328, Anesthesia Intra-op Rate Change 01/21/2025 1:17 PM CDT 75 mcg/kg/min 29.115 mL/hr Rate Change 01/21/2025 1:12 PM CDT 100 mcg/kg/min 38.82 mL /hr Given 01/21/2025 12:59 PM CDT 20 mg documented in this encounter
--- OUTSIDE RECORDS SUMMARY | 2025-01-21 13:21 | XMS_ITS | Encounter Summary ---
Author Organization [facility] Address [address] [place] [address] Care Team Providers Care Associate Name Role Phone Unavailable Primary Care Provider Unavailabl e Reason for Visit * Auth/Cert (Routine) Specialty Diagnoses / Procedures Referred By Josephine t Referred To Contact Multi Specialty Diagnoses History of colitis Melena Hematochezia Alternating constipation and diarrhea Easy bruising History of colitis Melena Hematochezia Alternating constipation and diarrhea Easy bruising Procedures MD COLONOSCOPY FLX DX W/COLLJ SPEC WHEN PFRMD MD COLONOSCOPY W/BIOPSY SINGLE/MULTIPLE MD COLORECTAL SCRN HI RISK IND MD COLSC FLX W/RMVL OF TUMOR POLYP LESION SNARE TQ MD COLSC FLX W/REMOVAL LESION BY HOT BX FORCEPS MD EGD TRANSORAL BIOPSY SINGLE/MULTIPLE MD EGD BALLOON DILATION ESOPHAGUS <30 MM DIAM MD EGD DILATION GASTRIC/DUODENAL STRICTURE MD COLON CA SCRN NOT HI RSK IND MD COLSC FLX WITH DIRECTED SUBMUCOSAL NJX ANY SBST COLONOSCOPY COLONOSCOPY COLONOSCOPY COLONOSCOPY COLONOSCOPY ESOPHAGOGASTRODUODENOSCOP Y ESOPHAGOGASTRODUODENOSCOP Y ESOPHAGOGASTRODUODENOSCOP Y Bj Cullen MD [address] [place] [address] Dr [address] [place] [address] Phone: tel: fax: [facility] [address] [place] [phone] Phone: tel: fax: Referral ID Status Reason Start Date Expiration Date Visits Re quested Visits Authorized [id number] 1 1 Encounter Details Date Type Department Care Team (Late st Contact Info) Description 01/21/2025 1:21 PM CDT - 01/21/2025 2:15 PM CDT Surgery [facility] [address] [place] [phone] Bj Cullen MD [address] [place] [address] Dr [address] [place] [phone] COLONOSCOPY Surgery Details Date/Time Status Location OR Service Patient Class Case Class Case Type Trauma Case? 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 GENERAL INSTRUCTIONS: Call your surgeons office ([phone]) if there are any questions. If you [...] through Care Everywhere. * Colonoscopy: Post op (Mauritanian) * EGD (Upper Endoscopy): Post op (Mauritanian) * Hemorrhoids (Mauritanian) * Gastritis (Mauritanian) * Psyllium ([place]auritanian) documented in this encounter Medications at Time [...] there are no changes. The plan for PUBLIC HEALTH OFFICER anesthesia was reviewed and approved prior to administration of anesthesia. Source Note - Bj Cullen MD - 01/21/2025 12:28 PM CDT General Surgery Outpatient Clinic Note Patient: Ronen Almeida [id number] Chief Complaint: Subjective Establish Care (ED f/u [...] daily. She was previously on an acid anti air warfare operations officer at the age of 8 due to [...] at 6 months old. 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 5. Easy bruising. INR and PTT tests [...] author of this note, patient (or authorized sales representative wire rope), and all other persons present consent to the audio recording of this visit for charting documentation purposes. Bj Alanis MD TOBACCO COUNSELING She is not a tobacco/nicotine user. Blood pressure found to be within normal limits and the patient is without complaints. No physicianconsult required. * Bj Cullen MD - 01/21/2025 12:28 PM CDT General Surgery Outpatient Clinic Note Patient: Ronen Almeida [id number] Chief Complaint: Subjective Establish Care (ED f/u [...] daily. She was previously on an acid anti air warfare operations officer at the age of 8 due to [...] at 6 months old. 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 5. Easy bruising. INR and PTT tests [...] author of this note, patient (or authorized sales representative wire rope), and all other persons present consent to [...] discussed. Plan for sedation/anesthesia with a supervised PUBLIC HEALTH OFFICER provider was discussed. The patient was placed [...] the colonic preparation was excellent, please see [place] score below. A carefulinspection was made as the colonoscope was withdrawn, including a retroflexed view of the rectum; findings and interventions are described below. Appropriate photodocumentation was obtained. Findings: -normal colonic mucosa throughout -hemorrhoids (internal and external), Moderate in size [place] bowel preparation scale score: Location and score: right colon 3, transverse colon 3, left colon 3. Total [place] score: 9. Score 0: Unprepared colon with [...] 01/21/2025 1:20 PM CDT Ronen Almeida 2005 CSN:[id number] 01/21/2025 Esophagogastroduodenoscopy Procedure Note Referring Physician: No [...] discussed. Plan for sedation/anesthesia with a supervised PUBLIC HEALTH OFFICER provider was discussed. The patient was placed [...] Procedure Name Priority Date/Time Associated Diagnosis Comments MD EGD DILATION GASTRIC/DUODENAL STRICTURE 01/21/2025 1:21 PM CDT History of colitis Melena Hematochezia Alternating constipation and diarrhea Easy bruising MD EGD BALLOON DILATION ESOPHAGUS <30 MM DIAM 01/21/2025 1:21 PM CDT History of colitis Melena Hematochezia Alternating constipation and diarrhea Easy bruising MD EGD TRANSORAL BIOPSY SINGLE/MULTIPLE 01/21/2025 1:21 PM CDT History of colitis Melena Hematochezia Alternating constipation and diarrhea Easy bruising MD COLSC FLX W/REMOVAL LESION BY HOT BX FORCEPS 01/21/2025 1:21 PM CDT History of colitis Melena Hematochezia Alternating constipation and diarrhea Easy bruising MD COLSC FLX W/RMVL OF TUMOR POLYP LESION SNARE TQ 01/21/2025 1:21 PM CDT History of colitis Melena Hematochezia Alternating constipation and diarrhea Easy bruising MD COLORECTAL SCRN HI RISK IND 01/21/2025 1:21 PM CDT History of colitis Melena Hematochezia Alternating constipation and diarrhea Easy bruising MD COLONOSCOPY W/BIOPSY SINGLE/MULTIPLE 01/21/2025 1:21 PM CDT History of colitis Melena Hematochezia Alternating constipation and diarrhea Easy bruising MD COLONOSCOPY FLX DX W/COLLJ SPEC WHEN PFRMD [...] CDT) CASE REPORT Surgical Pathology Report Case: [id number] Authorizing Provider: Bj Cullen Collected: 01/21/2025 01:02 PM MD Ford Ordering Location: [facility] Received: 01/22/2025 06:40 AM Outpatient Treatment Center Pathologist: Jose Medina MD Specimens: A) - Stomach, antrum B) - Stomach, body C) - GE junction 9:42 AM CDT [facility] FINAL DIAGNOSIS A. Stomach, antrum, biopsy - benign gastric mucosa with no significant inflammation, superficial biopsy. / B. Stomach, body, biopsy - benign gastric mucosa with no significant inflammation. / C. GE junction, biopsy - benign gastric mucosa with mild chronic inflammation - no evidence of goblet cell metaplasia, dysplasia, or malignancy. Jose Medina MD [id number] 5 9:42 AM T [facility] at 0942 CDT GROSS DESCRIPTION A. Received in formalin labeled Quaker -stomach biopsy of antrum is a single fragment of peña-pink soft tissue, 0.2 cm in greatest dimension. The specimen is submitted entirely in A1. B. Received in formalin labeled Quaker -stomach biopsy of gastric body is a single fragment of peña-pink soft tissue, 0.2 cm in greatest dimension. The specimen is submitted entirely in B1. C. Received in formalin labeled Quaker -GE junction biopsy is a single fragment of peña-pink soft tissue, 0.2 cm in greatest dimension. The specimen is submitted entirely in C1. Grossed by: Haritha Villeda MS, NAMITA ([facility]) 5 9:42 AM CDT [facility] OPERATIVE PROCEDURE 1: COLONOSCOPY 2: ESOPHAGOGASTRODUODENOSCO PY 5 9:42 AM T [facility] CLINICAL INFORMATION Z87.19-History of colitis K92.1-Melena K92.1-Hematochezia R19.8-Alternating constipation and diarrhea R23.3-Easy bruising 5 9:42 AM T [facility] COMMENT The [employer] voice-activated dictation system may have been used [...] determined by the Diagnostic [facility]ohist[facility] of [facility] in compliance with CLIA'88 regulations. Some of these tests rely on the use of analyte specific reagents and are subject to specific labeling requirements by the FDA. All controls show appropriate reactivity. This testing was developed by the [facility]ohist[facility] of [facility]. It has not been cleared or approved by the FDA. The FDA has determined that such clearance or approval is not necessary. 9:42 AM CDT [facility] Tissue ENTIRE STOMACH / Unknown Collection / Unknown 01/21/2025 1:02 PM CDT 01/22/2025 6:40 AM CDT Tissue specimen (specimen) ENTIRE STOMACH / Unknown 01/21/2025 1:02 PM CDT 01/22/2025 6:40 AM CDT Tissue specimen (specimen) (GE junction) 01/21/2025 1:03 PM CDT 01/22/2025 6:40 AM CDT us Bj Alanis MD PATHOLOGY/CYTOL OGY ORDERABLES Final Result [facility] CLIA # [id number] [address] [place] [id number] * (ABNORMAL) HCG QUALITATIVE, URINE (01/21/2025 11:11 AM CDT) HCG QUAL URINE Negative Negative 01/21/2025 11:16 AM CDT [facility] COLOR UA Dark Yellow Pale to Dark Yellow 01/21/2025 11:16 AM CDT [facility] CLARITY UA Slightly Cloudy(A) Clear 01/21/2025 11:16 AM CDT [facility] Urine URINE SPECIMEN OBTAINED BY CLEAN CATCH PROCEDURE / Unknown Collection / Unknown 01/21/2025 11:11 AM CDT 01/21/2025 11:11 AM CDT us Bj Alanis MD URINE ORDERABLE S Final Result [facility] CLIA # [id number] [address] [place] [address] documented in this encounter Visit Diagnoses Diagnosis [...]
[2025-01-23] VITALS (7 sets, daily range): BP systolic 116–134; BP diastolic 75–83; PULSE 58–81; RESP 18; TEMP 36.8; O2SAT 86–100
--- NOTE | 2025-01-23 06:59 | ED_ITS ---
HPI - Abdominal Pain 2 General: Chief Complaint: Abdominal Pain Stated Complaint: vomitting & abd pain Time Seen by Provider: 01/23/25 06:52 History of Present Illness: 19-year-old female who presents emergenc y room complaining of generalized abdominal pain nausea and vomiting. She is complaining of numbness and tingling to her face and arms. She does regularly use marijuana as well she denies any medic easy melena hematemesis or coffee-ground emesis had mostly bilious vomiting. No dysuria urgency or frequency does not believe she is . Associated Symptoms: Reports nausea and vomiting; Denies chills, coffee ground emesis, dysuria, fever(s), hematochezia, hematemesis and melena Related Data Home Medications ?Medication ?Instructions ?Recorded ?Confirmed desogestrel 0.15 mg-ethinyl 1 tab PO DAILY 01/23/25 estradiol 0.03 mg tablet (Isibloom) dicyclomine 20 mg tablet 20 mg PO Q6H PRN Abdominal P ain 01/23/25 01/23/25 epinephrine 0.3 mg/0.3 mL See Rx Instructions .Route . COMPLEX 01/23/25 01/23/25 injection, auto-injector ondansetron 4 mg disintegrating 4 mg translingual Q8H PRN Nausea 01/23/25 01/23/25 tablet Previous Rx's ?Medication ?Instructions ?Recorded promethazine 25 mg tablet 25 mg PO Q6H PRN nausea and 01/23/25 vomiting #20 tabs Allergies Allergy/AdvReac Type Severity Reaction Status Date / Time Alpha-Gal Allergy Unknown Verified 01/23/25 07:02 ([id number],3-Gala Review of Systems 2 Const: Denies: fever(s) or chills Card: Denies: chest pain Resp: Denies: dyspnea GI: Reports: abdominal pain, nausea and vomiting; Denies: hematemesis, coffee ground emesis, hematochezia or melena : Denies: dysuria, urinary frequency or urinary urgency Musc: Denies: neck pain or back pain Skin/Breast: Denies: rash PFSH ED 2 PFSH: Medical History Colitis Anxiety Moderate major depression Family History Mother Hypertension Psychiatric illness MDD, anxiety Father Alcoholism Hyperlipidemia Hypertension CAD (coronary artery disease) Sister Diabetes Social History Smoking and tobacco/nicotine status: current every day tobacco/nicotine user e- cigarettes E-Cigarette Details: vaporizer device and with nicotine Second hand smoke exposure: No Alcohol intake: never Substance/Drug Use: never Current occupational exposures/hazards: No Sexually active: No Current gender identity: Female Physical Exam 2 Const: COMMON NORMALS: no acute distress GENERAL APPEARANCE: cooperative and comfortable ORIENTATION/CONSCIOUSNESS: Yes awake, Yes oriented to person, Yes oriented to place and Yes oriented to time HENMT: COMMON NORMALS: normocephalic, atraumatic and hearing grossly normal bilaterally HEAD & SCALP: normocephalic and atraumatic Resp: COMMON NORMALS: normal respiratory effort, No retractions, No use of accessory muscles and clear to auscultation bilaterally AUSCULTATION: clear to auscultation bilaterally Cardio: COMMON NORMALS: regular rate, regular rhythm and No murmurs present (Cardio) RATE: regular rate RHYTHM: regular rhythm GI: COMMON NORMALS: Soft to palpation and No hepatosplenomegaly present A USCULTATION: Yes normoactive bowel sounds PALPATION: Yes Soft to palpation, No Tenderness to palpation present (GI), No Guarding due to palpation present (GI) and Yes No hepatosplenomegaly present Extremity: COMMON NORMALS: normal to inspection, capillary refill normal, no clubbing, cyanosis or edema, no calf tenderness and no pedal edema Neuro: SENSORIUM/ORIENTATION: Yes oriented to person, Yes oriented to place and Yes oriented to time Skin: COMMON NORMALS: no rashes or lesions noted GENERAL SKIN EXAM: no rashes or lesions noted Course 2 Vital Signs: Vital signs: Vital Signs Temperature 98.2 F 01/23/25 06:57 Pulse Rate 63 01/23/25 08:37 Respiratory Rate 18 01/23/25 07:49 Blood Pressure 119/75 01/23/25 08:37 Pulse Oximetry 98 01/23/25 08:37 Oxygen Delivery Me thod Room Air 01/23/25 08:37 Oxygen Flow Rate 2 01/23/25 07:49 MDM - Abdominal Pain Medical Decision Making Hyperventilation syndrome with hyperemesis cannabinoid syndrome. Patient improved after Ativan and IV fluids laboratory test reviewed and unremarkable with the exception of the blood gas which showed significant hyperventilation. After the Ativan patient became very sleepy and required a little bit of oxygen support for short time but is now fully recovered awake and alert her other symptoms have resolved. Will discharge her home encouraged her to decrease or stop the use of THC products Medical Records I reviewed the patient's medical records. Lab Data I reviewed the patient's lab results. 01/23/25 07:11 01/23/25 07:11 Labs/Radiology: Laboratory Results WBC 6.64 10^3/uL (4.5-13.0) 01/23/25 07:11 RBC 4.96 10^6/uL (3.85-5.65) 01/23/25 07:11 Hgb 15.30 g/dL (12.4-14.8) H 01/23/25 07:11 Hct 43.4 % (36-47) 01/23/25 07:11 MCV 87.5 fl (85-98) 01/23/25 07:11 MCH 30.8 pg (27-33) 01/23/25 07:11 MCHC 35.3 g/dL (30-55) 01/23/25 07:11 RDW 11.5 % (12.1-15.1) L 01/23/25 07:11 Plt Count 189 10^3/cmm (157-399) 01/23/25 07:11 MPV 10.3 fL (7.4-10.4) 01/23/25 07:11 Neut % (Auto) 76.8 % 01/23/25 07:11 Lymph % (Auto) 18.1 % 01/23/25 07:11 Potter % (Auto) 4.4 % 01/23/25 07:11 Eos % (Auto) 0.2 % 01/23/25 07:11 Baso % (Auto) 0.3 % 01/23/25 07:11 Neut # (Auto) 5.11 10^3/uL (1.8-8.0) 01/23/25 07:11 Lymph # (Auto) 1.2 10^3/uL (1.5-6.5) L 01/23/25 07:11 Potter # (Auto) 0.3 10^3/uL (0.2-0.9) 01/23/25 07:11 Eos # (Auto) 0.0 10^3/uL (0.0-0.8) 01/23/25 07:11 Baso # (Auto) 0.0 10^3/uL (0.0-0.1) 01/23/25 07:11 Nucleated RBC % (auto) 0 % 01/23/25 07:11 Nucleated RBCs # 0.0 /100WBC 01/23/25 07:11 Specimen Type Arterial 01/23/25 07:09 Sample Site Radial, left 01/23/25 07:09 ABG pH 7.66 (7.35-7.45) H* 01/23/25 07:09 ABG pCO2 13.3 mmHg (35-45) L* 01/23/25 07:09 ABG pO2 133.0 mmHg (80.0-100.0) H 01/23/25 07:09 ABG PO2/FiO2 Ratio 633 01/23/25 07:09 ABG HCO3 14.9 mmol/L (22-26) L 01/23/25 07:09 ABG O2 Saturation > 99.1 01/23/25 07:09 ABG Base Excess -1.8 mmol/L (-2.0-2.0) 01/23/25 07:09 Clarence Test Pos 01/23/25 07:09 A-a O2 Gradient Not Reportable 01/23/25 07:09 Hematocrit 46.6 % (37-47) 01/23/25 07:09 Hgb O2 Saturation 98.5 % (95-100) 01/23/25 07:09 Carboxyhemoglobin 0.8 %THgb (0.4-20.1) 01/23/25 07:09 Methemoglobin 0.9 % (0.4-1.5) 01/23/25 07:09 Total Hemoglobin 15.2 g/dL (12-16) 01/23/25 07:09 Sodium 141.0 mmol/L (131-143) 01/23/25 07:09 Potassium 3.2 mmol/L (3.5-5.0) L 01/23/25 07:09 Glucose 153.0 mg/dL (70-115) H 01/23/25 07:09 Ionized Calcium 1.1 mmol/L (1.1-1.4) 01/23/25 07:09 O2 Delivery Device Room air 01/23/25 07:09 FiO2 21.0 % 01/23/25 07:09 [employer] Counterperson ID [place]ak 01/23/25 07:09 Sodium 140 mmol/L (136-145) 01/23/25 07:11 Potassium 3.3 mmol/L (3.5-5.1) L 01/23/25 07:11 Chloride 101 mmol/L (98-107) 01/23/25 07:11 Carbon Dioxide 16 mmol/L (22-29) L 01/23/25 07:11 Anion Gap 26.3 (5-19) H 01/23/25 07:11 BUN 9 mg/dL (6-20) 01/23/25 07:11 Creatinine 0.7 mg/dL (0.5-0.9) 01/23/25 07:11 GFR Calculation 107.8 mL/min (90-130) 01/23/25 07:11 Glucose 157 mg/dL (65-115) H 01/23/25 07:11 Calculated Osmolality 292 mOsm/kg (285-295) 01/23/25 07:11 Calcium 9.9 mg/dL (8.5-10.5) 01/23/25 07:11 Total Bilirubin 0.7 mg/dL (0.15-1.2) 01/23/25 07:11 AST 15 U/L (0-32) 01/23/25 07:11 ALT 12 U/L (0-33) 01/23/25 07:11 Alkaline Phosphatase 44 U/L (35-105) 01/23/25 07:11 Total Protein 8.0 g/dL (6.6-8.7) 01/23/25 07:11 Albumin 4.7 g/dL (3.5-5.2) 01/23/25 07:11 Globulin 3.3 g/dL (1.3-4.6) 01/23/25 07:11 Lipase 20 U/L (13-60) 01/23/25 07:11 HCG, Qual Negative (Negative) 01/23/25 07:11 Urine Color Yellow (Yellow) 01/23/25 07:14 Urine Appearance Clear (CLEAR) 01/23/25 07:14 Urine pH 6.0 (5-7) 01/23/25 07:14 Ur Specific [place] 1.025 (1.005-1.030) 01/23/25 07:14 Urine Protein 1+ (Negative) A 01/23/25 07:14 Urine Glucose (UA) Negative (Normal) 01/23/25 07:14 Urine Ketones 4+ (Negative) 01/23/25 07:14 Urine Blood Negative (Negative) 01/23/25 07:14 Urine Nitrate Negative (Negative) 01/23/25 07:14 Urine Bilirubin Negative (Negative) 01/23/25 07:14 Urine Urobilinogen 1.0 mg/dL (Negative) 01/23/25 07:14 Ur Leukocyte Esterase Trace (Negative) A 01/23/25 07:14 Urine RBC 0-2 /hpf (0-2) 01/23/25 07:14 Urine WBC 0-5 /hpf (0-5) 01/23/25 07:14 Ur Squamous Epith Cells 0-5 /hpf (0-5) 01/23/25 07:14 Amorphous Sediment Not Reportable 01/23/25 07:14 Urine Bacteria None seen /hpf (NONE) 01/23/25 07:14 Hyaline Casts 2.05 /lpf 01/23/25 07:14 All radiology interpretation(s) finalized by discharge Discharge Plan Discharge Patient Disposition: Home Clinical Impression: Hyperventilation, Cannabinoid hyperemesis syndrome Condition: Stable Prescriptions: New promethazine 25 mg tablet 25 mg PO Q6H PRN (Reason: nausea and vomiting) Qty: 20 0RF No Action desogestrel-ethinyl estradiol [Isibloom] 0.15-0.03 mg tablet 1 tab PO DAILY dicyclomine 20 mg tablet 20 mg PO Q6H PRN (Reason: Abdominal Pain) epinephrine 0.3 mg/0.3 mL auto-injector See Rx Instructions .ROUTE .COMPLEX Rx Instructions: INJECT 0.3MG INTO THE MUSCLE ONCE DAILY NEEDED FOR ANAPHYLAXIS. ondansetron 4 mg tablet,disintegrating 4 mg translingual Q8H PRN (Reason: Nausea) Discharge Orders: Discharge ED (Routine); Ordered 01/23/25 Ordered By: Barron Cleveland Referrals: Dalton Izaguirre MD [Primary Care Provider, Family Practice] Discharge Diet: Clear Liquid Discharge Activity: Resume usual activity Patient Instructions: Opioid Safety, Pain Management, Patient Portal & Jsa Instructions Activity Restrictions/Additional Instructions: Thank you for choosing [facility] for your healthcare needs today. It is very important that you follow up as instructed or that you return to the Emergency Department should you have concerns or if your condition changes or worsens in any way. You are seen in the emergency room with nausea and vomiting. Your laboratory tests were normal with the exception of your blood gas showed hyperventilation. This is probably a good portion of the symptoms you were experiencing. Suspect the regular use of marijuana products also contribute to it. People use marijuana regularly frequently develops persistent nausea vomiting abdominal pain and cramping called hyperemesis cannabinoid syndrome. The best way to limit this is to decrease or stop the use of the marijuana products. Even after stopping it can take 6 weeks or longer before the symptoms resolve completely. Print Language: Italian Coding Level of Care Code ED Hearing Care Practitioner for Joselyn Stone
[2025-01-23] MEDS: ondansetron 2 mg/ML SDV 2 mL 4 MG IVP (07:12)
[2025-01-23 07:17] LABS: Hematocrit 43.4 % (36-47); Hemoglobin 15.30 g/dL (12.4-14.8); Mean Corpuscular HGB Conc 35.3 g/dL (30-55); Mean Corpuscular Hemoglobin 30.8 pg (27-33); Mean Corpuscular Volume 87.5 fl (85-98); Nucleated Red Blood Cells % 0 %; Platelet Count 189 10^3/cmm (157-399); Red Blood Count 4.96 10^6/uL (3.85-5.65); White Blood Count 6.64 10^3/uL (4.5-13.0)
[2025-01-23 07:21] LABS: Arterial Blood Gas Hematocrit 46.6 % (37-47); Blood Gas Allen Test Pos; Blood Gas Operator Identificat CAAK; Blood Gas Sample Site Radial, left; Blood Gas Sample Type Arterial; Carboxyhemoglobin 0.8 %THgb (0.4-20.1); Glucose Level-ABG 153.0 mg/dL (70-115); HCO3 ABG 14.9 mmol/L (22-26); Ionized Calcium Level - ABG 1.1 mmol/L (1.1-1.4); Methemoglobin 0.9 % (0.4-1.5); Oxygen Saturation ABG > 99.1; PO2 ABG 133.0 mmHg (80.0-100.0); PO2 FiO2 Ratio Arterial Blood 633; Potassium Level - ABG 3.2 mmol/L (3.5-5.0); Sodium Level - ABG 141.0 mmol/L (131-143)
[2025-01-23 07:22] LABS: ABG PH Result 7.66 (7.35-7.45)
[2025-01-23 07:23] LABS: ABG PCO2 13.3 mmHg (35-45)
[2025-01-23 07:27] LABS: HCG, Serum Qual Negative (Negative)
[2025-01-23] MEDS: LORazepam 1 MG/0.5 ML injection 2 MG IVP (07:34)
[2025-01-23 07:35] LABS: Alanine Aminotransferase 12 U/L (0-33); Albumin Level 4.7 g/dL (3.5-5.2); Alkaline Phosphatase 44 U/L (35-105); Anion Gap 26.3 (5-19); Aspartate Amino Transferase 15 U/L (0-32); Blood Urea Nitrogen 9 mg/dL (6-20); Calcium 9.9 mg/dL (8.5-10.5); Carbon Dioxide 16 mmol/L (22-29); Chloride 101 mmol/L (98-107); Creatinine Clr Calc Pharmacy 117.8457; Globulin 3.3 g/dL (1.3-4.6); Glucose 157 mg/dL (65-115); Lipase 20 U/L (13-60); Osmolality Calculated 292 mOsm/kg (285-295); Potassium 3.3 mmol/L (3.5-5.1); Sodium 140 mmol/L (136-145); Total Protein 8.0 g/dL (6.6-8.7)
--- NOTE | 2025-01-23 07:45 | PC.NURSE ---
this nurse re-assessed pt's nausea post ativan, pt reports relief from nausea at this time
[2025-01-23 07:54] LABS: Glucose Urine UA Negative (Normal); Nitrate Urine Negative (Negative); Specific Gravity, Urine 1.025 (1.005-1.030)
[2025-01-23 07:59] LABS: Add Urine Microscopic? YES
--- NOTE | 2025-01-23 08:56 | PC.NURSE ---
this nurse discusses order of Haldol with pt and pt's mother, pt confirms wanting to try medication for nausea d/t already attempting previous antiemetic medication(s).
--- NOTE | 2025-01-23 08:57 | PC.NURSE ---
pt's mother addressed concerns of discharge with Dr. Cleveland. pt did not express concerns to nurse during discharge. pt and mother state they want to leave, wanting nausea medicine prior to discharge; administered Haldol per verbal order of Dr. Cleveland. pt and family aware of need to stay and observe vitals for 20 minutes.
[2025-01-23] MEDS: haloperidol inj 5 mg/mL INJ 1 mL IM (09:04)
--- NOTE | 2025-01-23 09:27 | PC.NURSE ---
pt states ready for d/c, removed blood pressure cuff/pulse ox monitoring and got into wheelchair.
--- OUTSIDE RECORDS SUMMARY | 2025-01-24 03:18 | XMS_ITS | Clinical Summary ---
Author Organization [facility] Address [address] 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 0 Active dicyclomine (BENTYL) 20 mg tablet Take 1 Tablet (20 mg) by mouth 3 times daily as needed for Pain. 20 Tablet 5 Active ondansetron (ZOFRAN ODT) 4 mg Tablet, Rapid Dissolve Take 1 Tablet (4 mg) by mouth every 8 hours as needed for Nausea. Dissolve tablet on top of tongue, then swallow with saliva. 12 Tablet 5 Active omeprazole (PriLOSEC) 40 mg Capsule, Delayed Release(E.C.) Take 1 Capsule by mouth daily. 5 Active Isibloom 0.15-0.03 mg Tablet Take 1 Tablet by mouth daily. 5 Active EPINEPHrine (EPIPEN) 0.3 mg/0.3 mL Auto-Injector INJECT 0.3MG INTO THE MUSCLE ONCE DAILY NEEDED FOR ANAPHYLAXIS 5 Active Active Problems Problem Noted Date Diagnosed Date Alpha-gal syndrome 12/19/2024 Nausea & vomiting 12/16/2024 Hematemesis with nausea 12/16/2024 Alternating constipation and diarrhea 12/16/2024 Melena 12/16/2024 Right lower quadrant abdominal pain 12/16/2024 Right upper quadrant abdominal pain 12/16/2024 Periumbilical abdominal pain 12/16/2024 History of colitis 12/16/2024 Easy bruising 12/16/2024 Encounters Date Type Department Care Team Description 01/21/2025 1:21 PM CDT - 01/21/2025 2:15 PM CDT Surgery [address] [address] Bj Cullen MD COLONOSCOPY 01/21/2025 12:46 PM CDT Anesthesia Event [address] [address] Magnus Beltran, Shey Pace CRNA 01/21/2025 10:32 AM CDT - 01/21/2025 2:57 PM CDT Hospital Encounter [address] [place] [address] Bj Cullen MD Alpha-gal syndrome Discharge Disposition: Home or Self Care 01/15/[address] [place] [address] Bj Cullen MD Surgery 12/31/2024 External Device Data STL ABSTRACTION Provider, Abstract 12/31/2024 External Device Data STL ABSTRACTION Provider, Abstract 12/31/2024 External Device Data ST[facility] ABSTRACTION Provider, Abstract 12/24/2024 8:59 AM CDT - 12/24/2024 11:59 PM CDT Hospital Encounter [facility] [address] [place] [address] Bj Cullen MD Discharge Disposition: Home or Self Care 12/24/2024 External Device Data STL ABSTRACTION Provider, Abstract 12/19/2024 Results Follow-Up [address] [place] [address] Bj Cullen MD CBC WITH DIFFERENTIAL, COMPREHENSIVE METABOLIC PANEL, ALPHA-GAL PANEL, Additional followed-up results: 3 12/16/2024 9:30 AM CDT Office Visit [address] [place] [phone] Bj Cullen MD Pre-operative clearance (Primary Dx); History of colitis; Hematochezia; Alternating constipation and diarrhea; Easy bruising; Nausea and vomiting, unspecified vomiting type; Hematemesis with nausea; Melena; Right lower quadrant abdominal pain; Right upper quadrant abdominal pain; Periumbilical abdominal pain 12/16/2024 Orders Only [address] [place] [phone] Bj Cullen MD 12/11/2024 External Device Data STL ABSTRACTION Provider, Abstract 12/10/2024 External Device Data STL ABSTRACTION Provider, Abstract 12/10/2024 External Device Data STL ABSTRACTION Provider, Abstract 12/03/2024 9:27 PM CDT - 12/04/2024 12:14 AM CDT Emergency [facility] Emergency Medicine [address] [place] [address] Malachi Jones MD Generalized abdominal pain (Primary Dx); Urinary tract infection without hematuria, site unspecified Discharge Disposition: Home or Self Care 12/03/2024 Travel from Last 3 Months Family History Medical History Relation Name Comments Crohn's Disease Maternal Grandfather Prostate Cancer Maternal Grandfather Cancer Maternal Grandmother Lymphoma Maternal Grandmother Colon Cancer Neg Hx Relation Name Status Comments Maternal Grandfather Maternal Grandmother Social History Tobacco Use Types Packs/Day Years Used Date Smoking Tobacco: Never Smokeless Tobacco: Never Tobacco Cessation:Counseling Given: No Alcohol Use Standard Drinks/Week Comments Not Currently 0 (1 standard drink = 0.6 oz pur e alcohol) Comments No Sex and Gender Information Value Date Recorded Sex Assigned at Not on file Legal Sex Female 8:37 PM [employer] T[employer]SULT[employer] Gender Identity Not on file Sexual Orientation Not on file Last Filed Vital Signs Vital Sign Reading [...] Mass Index 25.26 01/21/2025 11:05 AM CDT Plan of Treatment Health Maintenance Due Date Last Done Comments CHLAMYDIA SCREENING (ANNUAL) 11-24 YEARS 2016 HPV VACCINES (1 - 3-dose series) 2020 DTAP/TDAP/TD VACCINES (1 - Tdap) 2024 02/15/2010, 09/28/2007, 07/21/2006, Additional history exists Preventative Visit- Commercial 2024 INFLUENZA VACCINE (#1) 2025 HEPATITIS B VACCINES Completed 07/21/2006, 01/19/2006, 2005, Additional history exists Procedures Procedure Name Priority Date/Time Associated Diagnosis Comments WA EGD DILATION GASTRIC/DUODENAL STRICTURE 01/21/2025 1:21 PM CDT History of colitis Melena Hematochezia Alternating constipation and diarrhea Easy bruising WA EGD BALLOON DILATION ESOPHAGUS <30 MM DIAM 01/21/2025 1:21 PM CDT History of colitis Melena Hematochezia Alternating constipation and diarrhea Easy bruising WA EGD TRANSORAL BIOPSY SINGLE/MULTIPLE 01/21/2025 1:21 PM CDT History of colitis Melena Hematochezia Alternating constipation and diarrhea Easy bruising WA COLSC FLX W/REMOVAL LESION BY HOT BX FORCEPS 01/21/2025 1:21 PM CDT History of colitis Melena Hematochezia Alternating constipation and diarrhea Easy bruising WA COLSC FLX W/RMVL OF TUMOR POLYP LESION SNARE TQ 01/21/2025 1:21 PM CDT History of colitis Melena Hematochezia Alternating constipation and diarrhea Easy bruising WA COLORECTAL SCRN HI RISK IND 01/21/2025 1:21 PM CDT History of colitis Melena Hematochezia Alternating constipation and diarrhea Easy bruising WA COLONOSCOPY W/BIOPSY SINGLE/MULTIPLE 01/21/2025 1:21 PM CDT History of colitis Melena Hematochezia Alternating constipation and diarrhea Easy bruising WA COLONOSCOPY FLX DX W/COLLJ SPEC WHEN PFRMD 01/21/2025 1:21 PM CDT History of colitis Melena Hematochezia Alternating constipation and diarrhea Easy bruising PATHOLOGY Pathology 01/21/2025 1:02 PM CDT History of colitis Melena Hematochezia Alternating constipation and diarrhea Easy bruising HCG QUALITATIVE, URINE Routine 01/21/2025 11:11 AM CDT US ABDOMEN LIMITED Routine 12/24/2024 9: 27 AM CDT History of colitis Hematochezia Alternating constipation and diarrhea PROTIME-INR Routine 12/16/2024 11:04 AM CDT Easy bruising CELIAC DISEASE ANTIBODIES Routine 12/16/2024 11:04 AM CDT History of colitis Hematochezia Alternating constipation and diarrhea ALPHA-GAL PANEL Routine 12/16/2024 11:04 AM CDT History of colitis Hematochezia Alternating constipation and diarrhea COMPREHENSIVE METABOLIC PANEL Routine 12/16/2024 11:04 AM CDT Pre-operative clearance CBC WITH DIFFERENTIAL Routine 12/16/2024 11:04 AM CDT Pre-operative clearance CT ABDOMEN PELVIS W CONTRAST Stat 12/03/2024 11:17 PM CDT LIPASE Stat 12/03/2024 10:15 PM CDT COMPREHENSIVE METABOLIC PANEL Stat 12/03/2024 10:15 PM CDT CBC WITH DIFFERENTIAL Stat 12/03/2024 10:15 PM CDT URINALYSIS MICROSCOPY ONLY Stat 12/03/2024 9:31 PM CDT HCG QUALITATIVE, URINE Stat 12/03/2024 9:31 PM CDT URINALYSIS W/REFLEX MICROSCOPIC Stat 12/03/2024 9:31 PM CDT from Last 3 Months Results * PATHOLOGY (01/21/2025 1:02 PM CDT) CASE REPORT Surgical Pathology Report Case: [id number] Authorizing Provider: Bj Cullen Collected: 01/21/2025 01:02 PM MD Ford Ordering Location: [facility] Received: 01/22/2025 06:40 AM Outpatient Treatment Center Pathologist: Jose Medina MD Specimens: A) - Stomach, antrum B) - Stomach, body C) - GE junction 9:42 AM CDT [facility] FINAL DIAGNOSIS A. Stomach, antrum, biopsy - benign gastric mucosa with no significant inflammation, superficial biopsy. / B. Stomach, body, biopsy - benign gastric mucosa with no significant inflammation. / C. GE junction, biopsy - benign gastric mucosa with mild chronic inflammation - no evidence of goblet cell metaplasia, dysplasia, or malignancy. Jose Medina MD [id number] 9:42 AM CDT [facility] at 0942 CDT GROSS DESCRIPTION A. Received in formalin labeled Pentecostal -stomach biopsy of antrum is a single fragment of peña-pink soft tissue, 0.2 cm in greatest dimension. The specimen is submitted entirely in A1. B. Received in formalin labeled Pentecostal -stomach biopsy of gastric body is a single fragment of peña-pink soft tissue, 0.2 cm in greatest dimension. The specimen is submitted entirely in B1. C. Received in formalin labeled Pentecostal -GE junction biopsy is a single fragment of peña-pink soft tissue, 0.2 cm in greatest dimension. The specimen is submitted entirely in C1. Grossed by: Haritha Villeda MS, PA (ASCP)CM 5 9:42 AM CDT [facility] OPERATIVE PROCEDURE 1: COLONOSCOPY 2: ESOPHAGOGASTRODUODENOSCO PY 5 9:42 AM CDT [facility] CLINICAL INFORMATION Z87.19-History of colitis K92.1-Melena K92.1-Hematochezia R19.8-Alternating constipation and diarrhea R23.3-Easy bruising 5 9:42 AM CDT [facility] COMMENT The Imindi voice-activated dictation system may have been used [...] determined by the [facility] of [facility] in compliance with CLIA'88 regulations. Some of these tests rely on the use of analyte specific reagents and are subject to specific labeling requirements by the FDA. All controls show appropriate reactivity. This testing was developed by the [facility] of [facility]. It has not been cleared or approved by the FDA. The FDA has determined that such clearance or approval is not necessary. 5 9:42 AM CDT [facility] Tissue ENTIRE STOMACH / Unknown Collection / Unknown 01/21/2025 1:02 PM CDT 01/22/2025 6:40 AM CDT Tissue specimen (specimen) ENTIRE STOMACH / Unknown 01/21/2025 1:02 PM CDT 01/22/2025 6:40 AM CDT Tissue specimen (specimen) (GE junction) 01/21/2025 1:03 PM CDT 01/22/2025 6:40 AM CDT us Bj Alanis MD PATHOLOGY/CYTOL OGY ORDERABLES Final Result [facility] CLIA # [id number] [id number] [place] [address] * (ABNORMAL) HCG QUALITATIVE, URINE (01/21/2025 11:11 AM CDT) Only the most recent of2 resultswithin the time period is included. HCG QUAL URINE Negative Negative 01/21/2025 11:[address] [facility] COLOR UA Dark Yellow Pale to Dark Yellow 01/21/2025 11:[address] [facility] CLARITY UA Slightly Cloudy(A) Clear 01/21/2025 11:[address] [facility] Urine URINE SPECIMEN OBTAINED BY CLEAN CATCH PROCEDURE / Unknown Collection / Unknown 01/21/2025 11:11 AM CDT 01/21/2025 11:11 AM CDT us Bj Alanis MD URINE ORDERABLE S Final Result [facility] CLIA # [id number] [address] [place], [place] [id number] * US ABDOMEN LIMITED (12/24/2024 9:27 AM CDT) Anatomical Region Laterality Modality Abdomen Ultrasound 12/24/2024 9:27 AM CDT Impressions 12/24/2024 1:57 PM CDT IMPRESSION: Please see below. US ABDOMEN LIMITED, 12/24/2024 9:27 AM . Reason For Exam: See Diagnosis. Diagnosis: History of colitis; Hematochezia; Alternating constipation and diarrhea. COMPARISON: 12/03/2024 . TECHNIQUE: Multiplanar real-time ultrasonography of the right upper quadrant using barbosa-scale imaging, supplemented by color and spectral Doppler as needed. . FINDINGS: . Liver: Normal size, contour, and echo texture without focal lesions. . Gallbladder: Normal. No stones, wall thickening or pericholecystic fluid collections. No sonographic Jimenez's sign. . Pancreas: Incompletely visualized; unremarkable . Biliary: No intra- or extra-hepatic ductal dilatation. Common bile duct measures 2.3 mm. . Right kidney: Normal size, contour and echogenicity without perinephric fluid, or hydronephrosis. No focal masses are identified. Renal Length = 10.5 cm. . Peritoneum: No ascites. ++++++++++++++++++++ IMPRESSION: Normal right upper quadrant ultrasound. Narrative Procedure Note Steve Kidd MD - 12/24/2024 IMPRESSION: Please see below. US ABDOMEN LIMITED, 12/24/2024 9:27 AM . Reason For Exam: See Diagnosis. Diagnosis: History of colitis; Hematochezia; Alternating constipation and diarrhea. COMPARISON: 12/03/2024 . TECHNIQUE: Multiplanar real-time ultrasonography of the right upper quadrant using barbosa-scale imaging, supplemented by color and spectral Doppler as needed. . FINDINGS: . Liver: Normal size, contour, and echo texture without focal lesions. . Gallbladder: Normal. No stones, wall thickening or pericholecystic fluid collections. No sonographic Jimenez's sign. . Pancreas: Incompletely visualized; unremarkable . Biliary: No intra- or extra-hepatic ductal dilatation. Common bile duct measures 2.3 mm. . Right kidney: Normal size, contour and echogenicity without perinephric fluid, or hydronephrosis. No focal masses are identified. Renal Length = 10.5 cm. . Peritoneum: No ascites. ++++++++++++++++++++ IMPRESSION: Normal right upper quadrant ultrasound. Bj Alanis MD US ORDERABLES Final Result * (ABNORMAL) ALPHA-GAL PANEL (12/16/2024 11:04 AM CDT) ALLERGEN BEEF 2.01(H) kU/L [facility], ALLERGEN BEEF (F27) CLASS 2 [facility], FINNEY (F88) IGE 0.78(H) kU/L [facility], ALLERGEN FINNEY (F88) CLASS 2 [facility], ALLERGEN PORK 1.19(H) kU/L [facility], ALLERGEN PORK (F26) CLASS 2 [facility], GALACTOSE - ALPHA -1, 3 - GALACTOSE, IGE 2.95(H) <0.10 kU/L [facility], Comment: Results above 0.1 kU/L indicate an allergen-specific IgE sensitization to rbvopplcf-q-2,3-galactose, and such patients are at risk for delayed allergic reactions following beef, pork, or finney consumption. Circulating IgE antibodies may remain undetectable despite a convincing clinical history because these antibodies may be directed towards allergens revealed or altered during industrial processing, cooking, or digestion and therefore do not exist in the original food for which the patient is tested. Sometimes individuals diagnosed with chronic urticaria may develop IgE antibodies directed against human thyroglobulin. Such antibodies may cross-react with the bovine thyroglobulin used in ImmunoCAP(R) Allergen o215, alpha-Gal, leading to a false-positive test result. A definitive diagnosis should be based on the evaluation of both clinical and laboratory findings and not on any single diagnostic method. Additional information can be found at [email or web address] ALLERGY PANEL INTERP [facility], Comment: Specific Level of Allergen IGE Class kU/L Specific IGE Antibody ----- --------- 0 <0.10 Absent/Undetectable 0/1 0.10-0.34 Very Low Level 1 0.35-0.69 Low Level 2 0.70-3.49 Moderate Level 3 3.50-17.4 High Level 4 17.5-49.9 Very High Level 5 50-100 Very High Level 6 >100 Very High Level The clinical relevance of allergen results of 0.10-0.34 kU/L are undetermined and intended for specialist use. Allergens denoted with a include results using one or more analyte specific reagents. In those cases, the test was developed and its analytical performance characteristics have been determined by [employer]. It has not been cleared or approved by the U.S. Food and Drug Administration. This assay has been validated pursuant to the CLIA regulations and is used for clinical purposes. Test Performed at: [facility] [employer] [facility], [address] [place] [address] Liv Rader MD,PhD,ROBERT FERNANDEZ Blood 12/16/2024 11:0 4 AM CDT 12/16/2024 11:04 AM CDT Bj Alanis MD CHEMISTRY ORDER LINETTE Final Result Performing Organization Address [facility] Co de Phone Number [facility] [phone] [employer] [facility], [address] [place] [address] * CELIAC DISEASE ANTIBODIES (12/16/2024 11:04 AM CDT) CELIAC SEROLOGY INTERP [facility] Comment: No serological evidence for celiac disease is present. tTg may normalize in individuals with celiac disease who maintain a gluten free diet. If high suspicion of celiac disease, consider HLA DQ2 and DQ8 testing to rule out celiac disease. TRANSGLUTAMINASE IGA AB <1.0 U/mL [facility] Comment: Value Interpretation ----- <15.0 Antibody not detected > or = 15.0 Antibody detected IGA 233 47 - 310 mg/dL [facility] Comment: Test Performed at: [facility] [address] [address] Malachi Brooke Blood 12/16/2024 11:0 4 AM CDT 12/16/2024 11:04 AM CDT us Bj Alanis MD CHEMISTRY ORDER LINETTE Final Result [facility] [phone] [facility] [address] [place] [address] * (ABNORMAL) CBC WITH DIFFERENTIAL (12/16/2024 11:04 AM CDT) Only the most recent of2 resultswithin the time period is included. WBC 7.5 3.8 - 10.8 Thousand/u L [facility] RBC 3.95 3.80 - 5.10 Million/uL [facility] HEMOGLOBIN 12.1 11.7 - 15.5 g/dL [facility] HEMATOCRIT 36.4 35.0 - 45.0 % [facility] MCV 92.2 80.0 - 100.0 fL [facility] MCH 30.6 27.0 - 33.0 pg [facility] MCHC 33.2 32.0 - 36.0 g/dL [facility] Comment: For adults, a slight decrease in the calculated MCHC value (in the range of 30 to 32 g/dL) is most likely not clinically significant; however, it should be interpreted with caution in correlation with other red cell parameters and the patient's clinical condition. RDW 11.8 11.0 - 15.0 % [facility] PLATELETS 197 140 - 400 Thousand/u L [facility] MPV 9.9 7.5 - 12.5 fL [facility] COMMENT HEMATOLOGY [facility] Comment:Moderate Reactive Ly mphocytes Noted (11-30 per 100 WBC) NEUTROPHIL ABSOLUTE 2,400 1,500 - 7,800 cells/uL [facility] BANDS ABSOLUTE 225 0 - 750 cells/uL [facility] LYMPHOCYTES ABSOLUTE 4,275(H) 850 - 3,900 cells/uL [facility] MONOCYTE ABSOLUTE 450 200 - 950 cells/uL [facility] EOSINOPHIL ABSOLUTE 75 15 - 500 cells/uL [facility] BASOPHILS ABSOLUTE 75 0 - 200 cells/uL [facility] NEUTROPHIL 32.0 % [facility] BANDS 3.0 % [facility] LYMPHOCYTES 57.0 % [facility] MONOCYTE 6.0 % [facility] EOSINOPHILS 1.0 % [facility] BASOPHILS 1.0 % [facility] COMMENT HEMATOLOGY [facility] Comment: Although an automated CBC was ordered, our instrumentation detected an abnormality on your patient's specimen requiring us to perform a manual review. Test Performed at: [facility] [address] [place] [address] Carrie Cottrell MD Blood 12/16/2024 11:0 4 AM CDT 12/16/2024 11:04 AM CDT Bj Alanis MD HEMATOLOGY [facility] Final Result Performing Organization Address City/[facility]/ZIP Co de Phone Number [facility] [phone] [facility] [address] [place] [address] * PROTIME-INR (12/16/2024 11:04 AM CDT) INR 1.0 [facility] Comment: Reference Range 0.9-1.1 Moderate-intensity Warfarin Therapy 2.0-3.0 Higher-intensity Warfarin Therapy 3.0-4.0 PROTIME 10.7 9.0 - 11.5 sec [facility] Comment: For additional information, please refer to http://education.Frengo/faq/RAT620 (This link is being provided for informational/ educational purposes only.) Test Performed at: [facility] [address] [place] [address] Carrie Cottrell MD Blood 12/16/2024 11:0 4 AM CDT 12/16/2024 11:04 AM CDT Bj Alanis MD HEMATOLOGY [facility] Final Result [facility] [phone] [facility] [address] [place] [address] * COMPREHENSIVE METABOLIC PANEL (12/16/2024 11:04 AM CDT) Only the most recent of2 resultswithin the time period is included. GLUCOSE 86 65 - 99 mg/dL [facility] Comment: Fasting reference interval BUN 7 7 - 20 mg/dL [facility] CREATININE 0.69 0.50 - 0.96 mg/dL [facility] GFR 128 > OR = 60 mL/min/1. 73m2 [facility] BUN/CREAT RATIO SEE NOTE: (calc) [facility] Comment: Not Reported: BUN and Creatinine are within reference range. SODIUM 139 135 - 146 mmol/L [facility] POTASSIUM 4.1 3.8 - 5.1 mmol/L [facility] CHLORIDE 107 98 - 110 mmol/L [facility] CO2 25 20 - 32 mmol/L [facility] CALCIUM 9.3 8.9 - 10.4 mg/dL [facility] TOTAL PROTEIN 7.1 6.3 - 8.2 g/dL [facility] ALBUMIN 4.4 3.6 - 5.1 g/dL [facility] GLOBULIN 2.7 2.0 - 3.8 g/dL (calc) [facility] ALBUMIN/GLOBULIN RATIO 1.6 1.0 - 2.5 (calc) [facility] BILIRUBIN TOTAL 0.5 0.2 - 1.1 mg/dL [facility] ALKALINE PHOSPHATASE 38 36 - 128 U/L [facility] AST 20 12 - 32 U/L [facility] ALT 15 5 - 32 U/L [facility] Comment: Test Performed at: [facility] [address] [place] [address] Carrie Cottrell MD Blood 12/16/2024 11:0 4 AM CDT 12/16/2024 11:04 AM CDT Bj Alanis MD CHEMISTRY ORDER LINETTE Final Result [facility] [phone] [facility] [address] [place] [address] * CT ABDOMEN PELVIS W CONTRAST (12/03/2024 11:17 PM CDT) Anatomical Region Laterality Modality Abdomen Computed Tomogra phy 12/03/2024 11:1 5 PM CDT Impressions 12/03/2024 11:41 PM CDT IMPRESSION: 1. Relatively distended urinary bladder; correlate clinically for evidence of a urinary tract infection or urinary retention. 2. Trace free fluid in the dependent pelvis, most commonly physiologic. 3. Nonspecific splenomegaly. 4. No superimposed acute intra-abdominal abnormality; negative for acute appendicitis. Narrative 12/03/2024 11:41 PM CDT EXAM: CT ABDOMEN PELVIS W CONTRAST DATE/TIME OF EXAM: 12/03/2024 11:17 PM REASON FOR EXAM: RLQ abdominal pain DIAGNOSIS: See Reason for Exam COMPARISON: None. TECHNIQUE: Multiple contiguous axial CT images were obtained of the abdomen and pelvis after administration of intravenous contrast. Supplemental 2D reformatted images were generated and reviewed as needed. FINDINGS: Lower chest: No acute findings. Liver: No suspicious liver mass or acute abnormality. Gallbladder and Bile ducts: No radiodense gallstones. Bile ducts are non-dilated. Spleen: Mildly enlarged and measures 15.5 cm in maximal dimension. No acute findings. Pancreas: Normal. Adrenals: Normal. Kidneys, ureters, and urinary bladder: Kidneys are normal in size. No acute findings; no hydronephrosis. Relatively distended urinary bladder without focal abnormality. Bowel: No evidence of a small bowel obstruction or acute abnormality. Negative for acute appendicitis. Peritoneum/retroperitoneum: Small amount of nonspecific free fluid in the dependent pelvis. Vascular: No abdominal aortic aneurysm. Reproductive: No suspicious pelvic masses. Bone and soft tissues: No suspicious bony lesions. Procedure Note Luis Felipe Berrios MD - 12/03/2024 EXAM: CT ABDOMEN PELVIS W CONTRAST DATE/TIME OF EXAM: 12/03/2024 11:17 PM REASON FOR EXAM: RLQ abdominal pain DIAGNOSIS: See Reason for Exam COMPARISON: None. TECHNIQUE: Multiple contiguous axial CT images were obtained of the abdomen and pelvis after administration of intravenous contrast. Supplemental 2D reformatted images were generated and reviewed as needed. FINDINGS: Lower chest: No acute findings. Liver: No suspicious liver mass or acute abnormality. Gallbladder and Bile ducts: No radiodense gallstones. Bile ducts are non-dilated. Spleen: Mildly enlarged and measures 15.5 cm in maximal dimension. No acute findings. Pancreas: Normal. Adrenals: Normal. Kidneys, ureters, and urinary bladder: Kidneys are normal in size. No acute findings; no hydronephrosis. Relatively distended urinary bladder without focal abnormality. Bowel: No evidence of a small bowel obstruction or acute abnormality. Negative for acute appendicitis. Peritoneum/retroperitoneum: Small amount of nonspecific free fluid in the dependent pelvis. Vascular: No abdominal aortic aneurysm. Reproductive: No suspicious pelvic masses. Bone and soft tissues: No suspicious bony lesions. IMPRESSION: 1. Relatively distended urinary bladder; correlate clinically for evidence of a urinary tract infection or urinary retention. 2. Trace free fluid in the dependent pelvis, most commonly physiologic. 3. Nonspecific splenomegaly. 4. No superimposed acute intra-abdominal abnormality; negative for acute appendicitis. Malachi Jones MD CT ORDERABLES Final Re sult * LIPASE (12/03/2024 10:15 PM CDT) Pathologist [facility] LIPASE 19 13 - 60 U/L 12/03/2024 11:[address] [facility] Blood Collection / Unknown 12/03/2024 10:15 PM CDT 12/03/2024 10:25 PM CDT Malachi Jones MD CHEMISTRY ORDERABLES Fin al Result [facility] CLIA # [id number] [address] [place] [address] * (ABNORMAL) URINALYSIS MICROSCOPY ONLY (12/03/2024 9:31 PM CDT) WBC UA 6-10(A) 0 - 2 /hpf 12/03/2024 10:[address] [facility] RBC UA 3-5(A) 0 - 2 /hpf 12/03/2024 10:[address] [facility] BACTERIA UA 2+(A) Negative /hpf 12/03/2024 10:[address] [facility] EPITHELIAL CELLS, URINE >25(A) 0 - 5 /hpf 12/03/2024 10:[address] [facility] Urine URINE SPECIMEN OBTAINED BY CLEAN CATCH PROCEDURE / Unknown Collection / Unknown 12/03/2024 9:31 PM CDT 12/03/2024 9:45 PM CDT [facility] - 12/03/2024 10:30 PM CDT Urine specimen not acceptable for culture. us Malachi Jones MD URINE ORDERABLES Final R esult [facility] # [id number] [address] [place] [address] * (ABNORMAL) URINALYSIS WITH REFLEX MICROSCOPIC (12/03/2024 9:31 PM CDT) COLOR UA Yellow Pale to Dark Yellow 12/03/2024 10:30 PM [facility] CLARITY UA Slightly Cloudy(A) Clear 12/03/2024 10:30 PM [facility] SPECIFIC GRAVITY UA <=1.005 1.003 - 1.035 12/03/2024 10:30 PM [facility] PH UA 6.5 5.0 - 8.0 12/03/2024 10:30 PM [facility] LEUKOCYTE ESTERASE UA 1+(A) Negative 12/03/2024 10:30 PM [facility] NITRITE UA Positive(A) Negative 12/03/2024 10:30 PM [facility] PROTEIN UA Negative Negative 12/03/2024 10:30 PM [facility] GLUCOSE UA Negative Negative 12/03/2024 10:30 PM [facility] KETONES UA 2+(A) Negative 12/03/2024 10:[address] [facility] UROBILINOGEN UA 0.2 <2.0 mg/dL 10:[address] [facility] BILIRUBIN UA Negative Negative 12/03/2024 10:[address] [facility] BLOOD UA 2+(A) Negative 12/03/2024 10:[address] [facility] Urine URINE SPECIMEN OBTAINED BY CLEAN CATCH PROCEDURE / Unknown Collection / Unknown 12/03/2024 9:31 PM CDT 12/03/2024 9:45 PM CDT Malachi Jones MD URINE ORDERABLES Final R esult [facility] CLIA # [id number] [address] [place], [place] [id number] from Last 3 Months Insurance [facility] MEDICAID AETNA OPEN CHOICE [address] [place] [address] [facility] MEDICAID Advance Directives For more information, please contact: [phone] * Full Code (Latest Code Status on File) Date Activated Date Inactivated Comments 01/21/2025 11:16 AM 01/21/2025 5:03 PM * Full Code Date Activated Date Inactivated Comments 01/21/2025 11:01 AM 01/21/2025 11:16 AM
--- OUTSIDE RECORDS SUMMARY | 2025-01-24 03:18 | XMS_ITS | Patient Health Record ---
Author Organization [facility] Address [address] [place] [address] Care Team Providers Care Agricultural Research Engineer Name Role Phone Tiffany Lisa Primary Care Provider [phone] Allergies No Known Allergies Reason For Referral No Information Medications Medication SIG (Take, Route, Frequency, Duration) Notes Start Date End Date Status Cetirizine HCl 10 MG Tablet 1 tablet Orally Once a day; Duration: 30 day(s) 05/04/2021 Active Depo-Provera 150 MG/ML Suspension 1 ml Intramuscular Active Citalopram Hydrobromide 10 MG Tablet 1 1/2 tablet Orally Once a day at hs; Duration: 30 Not-Taking Fluticasone Propionate 50 MCG/ACT Suspension 1 spray in each nostril Nasally Once a day; Duration: 30 day(s) 05/04/2021 Active Social History Tobacco Use: Social History Observation Description Date Details (start date - stop date) Never Smoker NA - NA Social History Tobacco Use: Social Info Question Answer Notes xTobacco Use/Smoking Are you a nonsmoker Problems Problem Type SNOMED Code ICD Code Onset Dates Problem Status W/U Status Risk Notes Problem Moderate episode of recurrent major depressive disorder (F33.1) Active confirmed Plan Of Treatment No Information Insurance Providers Payer Name Payer Address Payer Phone Subscriber Number Group Number Insured Name Patient Relationship to Insured Coverage Start Date Coverage End Date [employer] Commercial [address] [place] [address] [id number] Ronen Day Self - patient is the insured [employer] [place] Medicaid Replacement [address] [address] [place] [phone] [id number] Ronen Day Self - patient is the insured Medical (General) History Medical History History ICD Code Depression Surgical History Surgery Date(Month/Year) adenotomy at age of 5 Hospitalization History Reason Date(Month/Year) Depression
--- OUTSIDE RECORDS SUMMARY | 2025-01-24 03:18 | XMS_ITS | Encounter Summary ---
Author Organization [facility] Address [address] [place] [address] Care Team Providers Care Drying Machine Back Tender Name Role Phone Unavailable Primary Care Provider Unavailabl e Encounter Details Date Type Department Care Team (Late st Contact Info) Description 12/19/2024 Results Follow-Up [facility] General Surgery- 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 Recommend HIDA scan if still symptomatic. 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 This acquired allergy can present after tick bites. Treatment is by avoiding the allergen which is abundantly expressed on cells and tissues of all mammalian species except primates. Patients sensitized to alpha-gal can have symptoms witha wide variety of mammalian meats especially beef, pork, and finney, so recommend patient to stop consumption of all these meats. Patient can also react to organ meats (ie, kidney, liver), gelatins in foods and candies, and milk so if there is no improvement after initial measures then need to stop all consumption of mammalian products and by-products. There is a risk of anaphylaxis with consumption of these elements so will prescribe EpiPen. documented in this encounter Plan of Treatment Not on file documented as of this encounter Visit Diagnoses Diagnosis Alpha-gal syndrome- Primary documented in this encounter
== END 2025-01-23 09:27 | disposition home or self-care (01) ==
PROVIDERS: Emergency Provider Family Medicine; PCP Family Medicine
DX: R11.2 Nausea with vomiting, unspecified (principal); R06.4 Hyperventilation; F12.10 Cannabis abuse, uncomplicated; F17.290 Nicotine dependence, other tobacco product, uncomplicated
CPT/HCPCS: 36600; 80051; 80053; 81001; 82330; 82805; 83690; 84703; 85025; 96361; 96372; 96374; 96375; 99284; J1630; J2060; J2405; J7030

== ENCOUNTER 2025-01-23 16:14 | Emergency (ER) | payer OTHER, BC, MEDICAID, SELFPAY ==
--- OUTSIDE RECORDS SUMMARY | 2025-01-21 10:32 | XMS_ITS | Encounter Summary ---
Author Organization [facility] Address [address] [place] [address] Care Team Providers Care Tire Mold Engraver Name Role Phone Unavailable Primary Care Provider Unavailabl e Reason for Visit * Auth/Cert (Routine) Specialty Diagnoses / Procedures Referred By Josephine t Referred To Contact Multi Specialty Diagnoses History of colitis Melena Hematochezia Alternating constipation and diarrhea Easy bruising History of colitis Melena Hematochezia Alternating constipation and diarrhea Easy bruising Procedures NC COLONOSCOPY FLX DX W/COLLJ SPEC WHEN PFRMD NC COLONOSCOPY W/BIOPSY SINGLE/MULTIPLE NC COLORECTAL SCRN HI RISK IND NC COLSC FLX W/RMVL OF TUMOR POLYP LESION SNARE TQ NC COLSC FLX W/REMOVAL LESION BY HOT BX FORCEPS NC EGD TRANSORAL BIOPSY SINGLE/MULTIPLE NC EGD BALLOON DILATION ESOPHAGUS <30 MM DIAM NC EGD DILATION GASTRIC/DUODENAL STRICTURE NC COLON CA SCRN NOT HI RSK IND NC COLSC FLX WITH DIRECTED SUBMUCOSAL NJX ANY SBST COLONOSCOPY COLONOSCOPY COLONOSCOPY COLONOSCOPY COLONOSCOPY ESOPHAGOGASTRODUODENOSCOP Y ESOPHAGOGASTRODUODENOSCOP Y ESOPHAGOGASTRODUODENOSCOP Y Bj Cullen MD [address] [place] [address] [address] [place] [address] Phone: tel: fax: [facility] [address] [place] [phone] Phone: tel: fax: Referral ID Status Reason Start Date Expiration Date Visits Re quested Visits Authorized [id number] 1 1 Encounter Details Date Type Department Care Team (Latest Contact Info) Description 01/21/2025 10:32 AM CDT - 01/21/2025 2:57 PM CDT Hospital Encounter [facility] [address] [place] [address] [place] [id number] Bj Cullen MD [address] [place] [address] [address] [place] [address] Alpha-gal syndrome Discharge Disposition: Home or Self Care Social History Tobacco Use Types Packs/Day Years Used Date Smoking Tobacco: Never Smokeless Tobacco: Never Alcohol Use Standard Drinks/Week Comments Not Currently 0 (1 standard drink = 0.6 oz pur e alcohol) Comments No Sex and Gender Information Value Date Recorded Sex Assigned at Not on file 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 GENERAL INSTRUCTIONS: Call your surgeons office ([phone]) if there are any questions. If you [...] through Care Everywhere. * Colonoscopy: Post op (Honduran) * EGD (Upper Endoscopy): Post op (Honduran) * Hemorrhoids (Honduran) * Gastritis (Honduran) * Psyllium (Honduran) documented in this encounter Medications at Time [...] there are no changes. The plan for ROLLER PRINTER anesthesia was reviewed and approved prior to administration of anesthesia. Source Note - Bj Cullen MD - 01/21/2025 12:28 PM CDT General Surgery Outpatient Clinic Note Patient: Ronen Almeida [id number] Chief Complaint: Subjective Establish Care (ED f/u [...] daily. She was previously on an acid certified art therapist at the age of 8 due to [...] at 6 months old. 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 5. Easy bruising. INR and PTT tests [...] author of this note, patient (or authorized renewals representative), and all other persons present consent to the audio recording of this visit for charting documentation purposes. Bj Alanis MD TOBACCO COUNSELING She is not a tobacco/nicotine user. Blood pressure found to be within normal limits and the patient is without complaints. No physicianconsult required. * Bj Cullen MD - 01/21/2025 12:28 PM CDT General Surgery Outpatient Clinic Note Patient: Ronen Almeida [id number] Chief Complaint: Subjective Establish Care (ED f/u [...] daily. She was previously on an acid certified art therapist at the age of 8 due to [...] at 6 months old. 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 5. Easy bruising. INR and PTT tests [...] author of this note, patient (or authorized renewals representative), and all other persons present consent [...] discussed. Plan for sedation/anesthesia with a supervised ROLLER PRINTER provider was discussed. The patient was placed [...] the colonic preparation was excellent, please see Thorndale score below. A carefulinspection was made as the colonoscope was withdrawn, including a retroflexed view of the rectum; findings and interventions are described below. Appropriate photodocumentation was obtained. Findings: -normal colonic mucosa throughout -hemorrhoids (internal and external), Moderate in size Thorndale bowel preparation scale score: Location and score: right colon 3, transverse colon 3, left colon 3. Total Thorndale score: 9. Score 0: Unprepared colon with [...] 01/21/2025 1:20 PM CDT Ronen Almeida 2005 [id number] 01/21/2025 Esophagogastroduodenoscopy Procedure Note Referring Physician: No [...] discussed. Plan for sedation/anesthesia with a supervised ROLLER PRINTER provider was discussed. The patient was placed [...] Procedure Name Priority Date/Time Associated Diagnosis Comments NC EGD DILATION GASTRIC/DUODENAL STRICTURE 01/21/2025 1:21 PM CDT History of colitis Melena Hematochezia Alternating constipation and diarrhea Easy bruising NC EGD BALLOON DILATION ESOPHAGUS <30 MM DIAM 01/21/2025 1:21 PM CDT History of colitis Melena Hematochezia Alternating constipation and diarrhea Easy bruising NC EGD TRANSORAL BIOPSY SINGLE/MULTIPLE 01/21/2025 1:21 PM CDT History of colitis Melena Hematochezia Alternating constipation and diarrhea Easy bruising NC COLSC FLX W/REMOVAL LESION BY HOT BX FORCEPS 01/21/2025 1:21 PM CDT History of colitis Melena Hematochezia Alternating constipation and diarrhea Easy bruising NC COLSC FLX W/RMVL OF TUMOR POLYP LESION SNARE TQ 01/21/2025 1:21 PM CDT History of colitis Melena Hematochezia Alternating constipation and diarrhea Easy bruising NC COLORECTAL SCRN HI RISK IND 01/21/2025 1:21 PM CDT History of colitis Melena Hematochezia Alternating constipation and diarrhea Easy bruising NC COLONOSCOPY W/BIOPSY SINGLE/MULTIPLE 01/21/2025 1:21 PM CDT History of colitis Melena Hematochezia Alternating constipation and diarrhea Easy bruising NC COLONOSCOPY FLX DX W/COLLJ SPEC WHEN PFRMD [...] CDT) CASE REPORT Surgical Pathology Report Case: [id number] Authorizing Provider: Bj Cullen Collected: 01/21/2025 01:02 PM MD Ford Ordering Location: [facility] Received: 01/22/2025 06:40 AM Outpatient Treatment Center Pathologist: Jose Medina MD Specimens: A) - Stomach, antrum B) - Stomach, body C) - GE junction 9:42 AM CDT [facility] Inside Warehouse [facility] FINAL DIAGNOSIS A. Stomach, antrum, biopsy - benign gastric mucosa with no significant inflammation, superficial biopsy. / B. Stomach, body, biopsy - benign gastric mucosa with no significant inflammation. / C. GE junction, biopsy - benign gastric mucosa with mild chronic inflammation - no evidence of goblet cell metaplasia, dysplasia, or malignancy. Jose Medina MD [id number] 9:42 AM CDT [facility] at 0942 CDT GROSS DESCRIPTION A. Received in formalin labeled Catholic -stomach biopsy of antrum is a single fragment of peña-pink soft tissue, 0.2 cm in greatest dimension. The specimen is submitted entirely in A1. B. Received in formalin labeled Catholic -stomach biopsy of gastric body is a single fragment of peña-pink soft tissue, 0.2 cm in greatest dimension. The specimen is submitted entirely in B1. C. Received in formalin labeled Catholic -GE junction biopsy is a single fragment of peña-pink soft tissue, 0.2 cm in greatest dimension. The specimen is submitted entirely in C1. Grossed by: Haritha Villeda MS, PA (ASC)CM 5 9:42 AM CDT [facility] OPERATIVE PROCEDURE 1: COLONOSCOPY 2: ESOPHAGOGASTRODUODENOSCO PY 5 9:42 AM T [facility] CLINICAL INFORMATION Z87.19-History of colitis K92.1-Melena K92.1-Hematochezia R19.8-Alternating constipation and diarrhea R23.3-Easy bruising 5 9:42 AM T [facility] COMMENT The [employer] Dispatch voice-activated dictation system may have been used [...] determined by the [facility]ohist[facility] of [facility] in compliance with CLIA'88 regulations. Some of these tests rely on the use of analyte specific reagents and are subject to specific labeling requirements by the FDA. All controls show appropriate reactivity. This testing was developed by the [facility] of [facility]. It has not been cleared or approved by the FDA. The FDA has determined that such clearance or approval is not necessary. 5 9:42 AM T [facility] Tissue ENTIRE STOMACH / Unknown Collection / Unknown 01/21/2025 1:02 PM CDT 01/22/2025 6:40 AM CDT Tissue specimen (specimen) ENTIRE STOMACH / Unknown 01/21/2025 1:02 PM CDT 01/22/2025 6:40 AM CDT Tissue specimen (specimen) (GE junction) 01/21/2025 1:03 PM CDT 01/22/2025 6:40 AM CDT us Bj Alanis MD PATHOLOGY/CYTOL OGY ORDERABLES Final Result Performing Organization Address City/[facility] Co de Phone Number [facility] LABORATORY [facility] CLIA # [id number] [facility] [address] * (ABNORMAL) HCG QUALITATIVE, URINE (01/21/2025 11:11 AM CDT) HCG QUAL URINE Negative Negative 01/21/2025 11:16 AM CDT [facility] COLOR UA Dark Yellow Pale to Dark Yellow 01/21/2025 11:16 AM CDT [facility] CLARITY UA Slightly Cloudy(A) Clear 01/21/2025 11:16 AM CDT [facility] Urine URINE SPECIMEN OBTAINED BY CLEAN CATCH PROCEDURE / Unknown Collection / Unknown 01/21/2025 11:11 AM CDT 01/21/2025 11:11 AM CDT us Bj Alanis MD URINE ORDERABLE S Final Result Performing Organization Address [facility] Co de Phone Number [facility] CLIA # [id number] [address] [place] [phone] documented in this encounter Visit Diagnoses [...]
--- OUTSIDE RECORDS SUMMARY | 2025-01-21 12:46 | XMS_ITS | Encounter Summary ---
Author Organization [facility] Address [address] [place] [address] Care Team Providers Care Scenic Artist Name Role Phone Unavailable Primary Care Provider Unavailabl e Reason for Visit * Auth/Cert (Routine) Specialty Diagnoses / Procedures Referred By Josephine t Referred To Contact Multi Specialty Diagnoses History of colitis Melena Hematochezia Alternating constipation and diarrhea Easy bruising History of colitis Melena Hematochezia Alternating constipation and diarrhea Easy bruising Procedures OR COLONOSCOPY FLX DX W/COLLJ SPEC WHEN PFRMD OR COLONOSCOPY W/BIOPSY SINGLE/MULTIPLE OR COLORECTAL SCRN HI RISK IND OR COLSC FLX W/RMVL OF TUMOR POLYP LESION SNARE TQ OR COLSC FLX W/REMOVAL LESION BY HOT BX FORCEPS OR EGD TRANSORAL BIOPSY SINGLE/MULTIPLE OR EGD BALLOON DILATION ESOPHAGUS <30 MM DIAM OR EGD DILATION GASTRIC/DUODENAL STRICTURE OR COLON CA SCRN NOT HI RSK IND OR COLSC FLX WITH DIRECTED SUBMUCOSAL NJX ANY SBST COLONOSCOPY COLONOSCOPY COLONOSCOPY COLONOSCOPY COLONOSCOPY ESOPHAGOGASTRODUODENOSCOP Y ESOPHAGOGASTRODUODENOSCOP Y ESOPHAGOGASTRODUODENOSCOP Y Bj Cullen MD [address] [place] [address] [address] [place] [address] Phone: tel: fax: [facility] [address] [place] [phone] Phone: tel: fax: Referral ID Status Reason Start Date Expiration Date Visits Re quested Visits Authorized [id number] 1 1 Encounter Details Date Type Department Care Team (Late st Contact Info) Description 01/21/2025 12:46 PM CDT Anesthesia Event [facility] [address] [place] [phone] Beltran Magnus PAMELA Alfaro [address] [place] [phone] Shey YuanPAMELA [address] [place] [address], [place] [phone] Anesthesia Record Procedure Summary Procedure Name Responsible [...] on file 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 Plan discussed with Pouncing Machine Operator and Surgeon/Proceduralists. Post-op Pain Control Plan to [...]
--- OUTSIDE RECORDS SUMMARY | 2025-01-21 13:21 | XMS_ITS | Encounter Summary ---
Author Organization [facility] Address [address] [place] [address] Care Team Providers Care Clerical Car Checker Name Role Phone Unavailable Primary Care Provider Unavailabl e Reason for Visit * Auth/Cert (Routine) Specialty Diagnoses / Procedures Referred By Josephine t Referred To Contact Multi Specialty Diagnoses History of colitis Melena Hematochezia Alternating constipation and diarrhea Easy bruising History of colitis Melena Hematochezia Alternating constipation and diarrhea Easy bruising Procedures CT COLONOSCOPY FLX DX W/COLLJ SPEC WHEN PFRMD CT COLONOSCOPY W/BIOPSY SINGLE/MULTIPLE CT COLORECTAL SCRN HI RISK IND CT COLSC FLX W/RMVL OF TUMOR POLYP LESION SNARE TQ CT COLSC FLX W/REMOVAL LESION BY HOT BX FORCEPS CT EGD TRANSORAL BIOPSY SINGLE/MULTIPLE CT EGD BALLOON DILATION ESOPHAGUS <[address] EGD DILATION GASTRIC/DUODENAL STRICTURE CT COLON CA SCRN NOT HI RSK IND CT COLSC FLX WITH DIRECTED SUBMUCOSAL NJX ANY SBST COLONOSCOPY COLONOSCOPY COLONOSCOPY COLONOSCOPY COLONOSCOPY ESOPHAGOGASTRODUODENOSCOP Y ESOPHAGOGASTRODUODENOSCOP Y ESOPHAGOGASTRODUODENOSCOP Y Bj Cullen MD [address] [place] [address] Dr [address] [place] [address] Phone: tel: fax: [facility] [address] [place] [phone] Phone: tel: fax: Referral ID Status Reason Start Date Expiration Date Visits Re quested Visits Authorized [id number] 1 1 Encounter Details Date Type Department Care Team (Late st Contact Info) Description 01/21/2025 1:21 PM CDT - 01/21/2025 2:15 PM CDT Surgery [facility] [address] [place] [phone] Bj Cullen MD [address] [place] [address] Dr [address] [place] [phone] COLONOSCOPY Surgery Details Date/Time Status Location OR Service Patient Class Case Class Case Type Trauma Case? 01/21/2025 1:21 PM Posted [facility] [place] 1 General Surgery Surgical OP/Extended Care Elective No Panel 1 Procedure LRB Anes Op Region Wound Class Comments COLONOSCOPY N/A Monitored Anesth etic Care Anus Not Applicable ESOPHAGOGASTRODUODENOSCOPY N/A Monit ored Anesthetic Care Esophagus Not Applicable Surgeon Surgeon Role Service Panel Bj Cullen MD Primary Genera l Surgery 1 documented in this encounter Social History Tobacco Use Types Packs/Day Years Used Date Smoking Tobacco: Never Smokeless Tobacco: Never Alcohol Use Standard Drinks/Week Comments Not Currently 0 (1 standard drink = 0.6 oz pur e alcohol) Comments No Sex and Gender Information Value Date Recorded Sex Assigned at Not on file Legal Sex Female 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 Gender Identity Not on file Sexual Orientation Not on file documented as of this encounter Last Filed Vital Signs Vital Sign Reading Time Taken Comments Blood Pressure 124/72 01/21/2025 2:15 PM CDT Pulse 81 01/21/2025 2:15 PM CDT Temperature 36.4 C (97.5 F) 01/21/2025 1:25 PM CDT Respiratory Rate 25 01/21/2025 2:15 PM CDT Oxygen Saturation 100% 01/21/2025 2:15 PM CDT Inhaled Oxygen Concentration - - Weight 64.7 kg (142 lb 9.6 oz) 01/21/2025 11:05 AM CDT Height 160 cm (5' 3 ) 01/21/2025 11:05 AM CDT Body Mass Index 25.26 01/21/2025 11:05 AM CDT documented in this encounter Discharge Instructions * Discharge Instructions* Liset Castañeda, RN - 01/21/2025 1:33 PM CDT Colonoscopy / [...] diet. GENERAL INSTRUCTIONS: Call your surgeons office ([phone]) if there are any questions. If you [...] through Care Everywhere. * Colonoscopy: Post op (Cape Verdean) * EGD (Upper Endoscopy): Post op ([place]) * Hemorrhoids ([place]) * Gastritis ([place] Ver[place]) * Psyllium ([place] Verdean) documented in this encounter Medications at Time [...] there are no changes. The plan for CYLINDER MACHINE OPERATOR anesthesia was reviewed and approved prior to administration of anesthesia. Source Note - Bj Cullen MD - 01/21/2025 12:28 PM CDT General Surgery Outpatient Clinic Note Patient: Ronen Almeida [id number] Chief Complaint: Subjective Establish Care (ED f/u [...] daily. She was previously on an acid tire finisher at the age of 8 due to [...] at 6 months old. 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 5. Easy bruising. INR and PTT tests [...] author of this note, patient (or authorized inventory representative), and all other persons present consent to the audio recording of this visit for charting documentation purposes. Bj Alanis MD TOBACCO COUNSELING She is not a tobacco/nicotine user. Blood pressure found to be within normal limits and the patient is without complaints. No physicianconsult required. * Bj Cullen MD - 01/21/2025 12:28 PM CDT General Surgery Outpatient Clinic Note Patient: Ronen Almeida [id number] Chief Complaint: Subjective Establish Care (ED f/u [...] daily. She was previously on an acid tire finisher at the age of 8 due to [...] at 6 months old. 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 5. Easy bruising. INR and PTT tests [...] author of this note, patient (or authorized inventory representative), and all other persons present consent [...] discussed. Plan for sedation/anesthesia with a supervised CYLINDER MACHINE OPERATOR provider was discussed. The patient was placed [...] the colonic preparation was excellent, please see Lavina score below. A carefulinspection was made as the colonoscope was withdrawn, including a retroflexed view of the rectum; findings and interventions are described below. Appropriate photodocumentation was obtained. Findings: -normal colonic mucosa throughout -hemorrhoids (internal and external), Moderate in size Lavina bowel preparation scale score: Location and score: right colon 3, transverse colon 3, left colon 3. Total Lavina score: 9. Score 0: Unprepared colon with [...] 01/21/2025 1:20 PM CDT Ronen Almeida 2005 CSN:[id number] 01/21/2025 Esophagogastroduodenoscopy Procedure Note Referring Physician: No [...] discussed. Plan for sedation/anesthesia with a supervised CYLINDER MACHINE OPERATOR provider was discussed. The patient was placed [...] Procedure Name Priority Date/Time Associated Diagnosis Comments CT EGD DILATION GASTRIC/DUODENAL STRICTURE 01/21/2025 1:21 PM CDT History of colitis Melena Hematochezia Alternating constipation and diarrhea Easy bruising CT EGD BALLOON DILATION ESOPHAGUS <30 MM DIAM 01/21/2025 1:21 PM CDT History of colitis Melena Hematochezia Alternating constipation and diarrhea Easy bruising CT EGD TRANSORAL BIOPSY SINGLE/MULTIPLE 01/21/2025 1:21 PM CDT History of colitis Melena Hematochezia Alternating constipation and diarrhea Easy bruising CT COLSC FLX W/REMOVAL LESION BY HOT BX FORCEPS 01/21/2025 1:21 PM CDT History of colitis Melena Hematochezia Alternating constipation and diarrhea Easy bruising CT COLSC FLX W/RMVL OF TUMOR POLYP LESION SNARE TQ 01/21/2025 1:21 PM CDT History of colitis Melena Hematochezia Alternating constipation and diarrhea Easy bruising CT COLORECTAL SCRN HI RISK IND 01/21/2025 1:21 PM CDT History of colitis Melena Hematochezia Alternating constipation and diarrhea Easy bruising CT COLONOSCOPY W/BIOPSY SINGLE/MULTIPLE 01/21/2025 1:21 PM CDT History of colitis Melena Hematochezia Alternating constipation and diarrhea Easy bruising CT COLONOSCOPY FLX DX W/COLLJ SPEC WHEN PFRMD [...] CDT) CASE REPORT Surgical Pathology Report Case: [id number] Authorizing Provider: Bj Cullen Collected: 01/21/2025 01:02 PM MD Ford Ordering Location: [facility] Received: 01/22/2025 06:40 AM Outpatient Treatment Center Pathologist: Jose Medina MD Specimens: A) - Stomach, antrum B) - Stomach, body C) - GE junction 9:42 AM CDT [facility] FINAL DIAGNOSIS A. Stomach, antrum, biopsy - benign gastric mucosa with no significant inflammation, superficial biopsy. / B. Stomach, body, biopsy - benign gastric mucosa with no significant inflammation. / C. GE junction, biopsy - benign gastric mucosa with mild chronic inflammation - no evidence of goblet cell metaplasia, dysplasia, or malignancy. Jose Medina MD [id number] 5 9:42 AM T [facility] at 0942 CDT GROSS DESCRIPTION A. Received in formalin labeled Yarsani -stomach biopsy of antrum is a single fragment of peña-pink soft tissue, 0.2 cm in greatest dimension. The specimen is submitted entirely in A1. B. Received in formalin labeled Yarsani -stomach biopsy of gastric body is a single fragment of peña-pink soft tissue, 0.2 cm in greatest dimension. The specimen is submitted entirely in B1. C. Received in formalin labeled Yarsani -GE junction biopsy is a single fragment of peña-pink soft tissue, 0.2 cm in greatest dimension. The specimen is submitted entirely in C1. Grossed by: Haritha Villeda MS, NAMITA ([facility]) 5 9:42 AM CDT [facility] OPERATIVE PROCEDURE 1: COLONOSCOPY 2: ESOPHAGOGASTRODUODENOSCO PY 5 9:42 AM T [facility] CLINICAL INFORMATION Z87.19-History of colitis K92.1-Melena K92.1-Hematochezia R19.8-Alternating constipation and diarrhea R23.3-Easy bruising 5 9:42 AM T [facility] COMMENT The [employer] voice-activated dictation system may have been used [...] determined by the [facility] of [facility] in compliance with CLIA'88 regulations. Some of these tests rely on the use of analyte specific reagents and are subject to specific labeling requirements by the FDA. All controls show appropriate reactivity. This testing was developed by the [facility] of [facility]. It has not been cleared or approved by the FDA. The FDA has determined that such clearance or approval is not necessary. 9:42 AM CDT [facility] Tissue ENTIRE STOMACH / Unknown Collection / Unknown 01/21/2025 1:02 PM CDT 01/22/2025 6:40 AM CDT Tissue specimen (specimen) ENTIRE STOMACH / Unknown 01/21/2025 1:02 PM CDT 01/22/2025 6:40 AM CDT Tissue specimen (specimen) (GE junction) 01/21/2025 1:03 PM CDT 01/22/2025 6:40 AM CDT us Bj Alanis MD PATHOLOGY/CYTOL OGY ORDERABLES Final Result [facility] CLIA # [id number] [address] [place] [address] * (ABNORMAL) HCG QUALITATIVE, URINE (01/21/2025 11:11 AM CDT) HCG QUAL URINE Negative Negative 01/21/2025 11:[address] [facility] COLOR UA Dark Yellow Pale to Dark Yellow 01/21/2025 11:[address] [facility] CLARITY UA Slightly Cloudy(A) Clear 01/21/2025 11:[address] [facility] Urine URINE SPECIMEN OBTAINED BY CLEAN CATCH PROCEDURE / Unknown Collection / Unknown 01/21/2025 11:11 AM CDT 01/21/2025 11:11 AM CDT us Bj Alanis MD URINE ORDERABLE S Final Result [facility] CLIA # [id number] [address] [place] [address] documented in this encounter Visit Diagnoses Diagnosis History of colitis Melena Blood in stool Hematochezia Blood in stool Alternating constipation and diarrhea Other symptoms involving digestive system Easy bruising Other symptoms involving skin and integumentary tissues Alpha-gal syndrome Hematemesis with nausea Nausea & vomiting Nausea with vomiting Periumbilical abdominal pain Abdominal pain, periumbilic Right lower quadrant abdominal pain Abdominal pain, right lower quadrant History of colitis Melena Blood in stool Hematochezia Blood in stool Alternating constipation and diarrhea Other symptoms involving digestive system Easy bruising Other symptoms involving skin and integumentary tissues documented in this encounter Admitting Diagnoses Diagnosis [...]
[2025-01-23 16:28] VITALS: BP 108/73; PULSE 84; RESP 20; TEMP 36.9; O2SAT 99; BMI 25.7
--- NOTE | 2025-01-23 18:21 | CTR_ITS ---
PROCEDURE INFORMATION: Exam: CT Abdomen And Pelvis With Contrast Exam date and time: 01/23/2025 6:51 PM Age: 19 years old Clinical indication: Abdominal pain; Generalized; Additional info: Diffuse abdominal pain, n/v TECHNIQUE: Imaging protocol: Computed tomography of the abdomen and pelvis with contrast. Radiation optimization: All CT scans at this facility use at least one of these dose optimization techniques: automated exposure control; mA and/or kV adjustment per patient size (includes targeted exams where dose is matched to clinical indication); or iterative reconstruction. Contrast material: OMNIPAQUE 350; Contrast volume: 100 ml; Contrast route: INTRAVENOUS (IV); COMPARISON: CT kidney stone [id number] 07/13/2024 1:26 AM RADIATION DOSE METRICS: Total DLP (mGy-cm): 400.73 FINDINGS: Liver: No discrete liver lesions are apparent. Smooth hepatic contour. Gallbladder and biliary ducts: No gallbladder distension or inflammation. No calcified gallstones are apparent. No common bile duct abnormality is evident. Pancreas: No evidence of pancreatitis. No ductal dilation. Spleen: Spleen is enlarged measuring 15.3 cm on coronal imaging. Adrenal glands: Adrenal glands are within expected limits. Kidneys and ureters: No renal or ureteral calculi are identified. No hydronephrosis. Stomach and bowel: Questionable mild hyperemia of bowel loops, large and small. Short-segment small bowel intussusception in the left midabdomen over a segment measuring 3.5 cm incidentally noted (axial image 50, coronal image 23). Appendix: No evidence of appendicitis. Intraperitoneal space: Small pelvic free fluid, nonspecific. No free air. Vasculature: No abdominal aortic aneurysm. Lymph nodes: No pathologically enlarged lymph nodes by CT size criteria. Urinary bladder: Urinary bladder appears mildly inflamed and slightly thick walled. Reproductive: Unremarkable as visualized. Bones/joints: No acute osseous abnormalities. Soft tissues: Unremarkable. CT/CT abdomen pelvis w con* [id number] IMPRESSION: 1. Questionable findings of mild enteritis. 2. Significant splenomegaly. Recommend correlation with symptoms or Monospot test. 3. Slight wall thickening of the urinary bladder, cystitis not excluded. 4. Short segment small bowel intussusception in the left mid abdomen. This is typically an incidental, transient finding but can occasionally be a source of abdominal pain.
[2025-01-23 18:23] VITALS: BP 116/69; PULSE 83; O2SAT 100
[2025-01-23 18:29] LABS: Hematocrit 45.4 % (36-47); Hemoglobin 15.80 g/dL (12.4-14.8); Mean Corpuscular HGB Conc 34.8 g/dL (30-55); Mean Corpuscular Hemoglobin 30.1 pg (27-33); Mean Corpuscular Volume 86.5 fl (85-98); Nucleated Red Blood Cells % 0 %; Platelet Count 233 10^3/cmm (157-399); Red Blood Count 5.25 10^6/uL (3.85-5.65); White Blood Count 11.00 10^3/uL (4.5-13.0)
[2025-01-23 18:36] LABS: Ketone (Acetest) Serum Negative (Negative)
[2025-01-23] MEDS: diphenhydrAMINE 50 mg/mL SDV 1mL IVP (18:38)
[2025-01-23 18:42] LABS: Alanine Aminotransferase 12 U/L (0-33); Albumin Level 5.0 g/dL (3.5-5.2); Alkaline Phosphatase 45 U/L (35-105); Anion Gap 23.3 (5-19); Aspartate Amino Transferase 17 U/L (0-32); Blood Urea Nitrogen 8 mg/dL (6-20); Calcium 10.0 mg/dL (8.5-10.5); Carbon Dioxide 20 mmol/L (22-29); Chloride 101 mmol/L (98-107); Creatinine Clr Calc Pharmacy 137.4866; Globulin 3.5 g/dL (1.3-4.6); Glucose 80 mg/dL (65-115); Lipase 22 U/L (13-60); Magnesium 1.9 mg/dL (1.7-2.2); Osmolality Calculated 289 mOsm/kg (285-295); Potassium 3.3 mmol/L (3.5-5.1); Sodium 141 mmol/L (136-145); Total Protein 8.5 g/dL (6.6-8.7)
[2025-01-23 18:44] LABS: Lactic Sepsis W/Reflex 1.7 mmol/L (0.5-2.2)
[2025-01-23] MEDS: iohexol 350 mg/mL 500 mL Btl (per mL) IV (18:53)
[2025-01-23] MEDS: ondansetron 2 mg/ML SDV 2 mL 8 MG IVP (19:54)
[2025-01-23 20:02] VITALS: BP 111/55; O2SAT 97
--- NOTE | 2025-01-23 20:22 | ED_ITS ---
HPI - Abdominal Pain 2 General: Chief Complaint: Abdominal Pain Stated Complaint: syncope & pain worse Time Seen by Provider: 01/23/25 16:25 History of Present Illness: Patient is a 19-year-old female who presents to the Emergency Department with complaints of severe lower abdominal pain, which she describes as 12 out of 10 and feels like someone is trying to rip out her intestines. The patient reports onset of symptoms at 2 AM this morning. She has been experiencing persistent vomiting and dry heaves throughout the day. The patient was previously seen in the ER earlier today and was diagnosed with cannabinoid hyperemesis. She left to go to work but later was found unconscious on the sidewalk at her home by her mother. The patient states she was vomiting outside and became exhausted, needing to lie down. Of note, the patient had an upper and lower endoscopy performed on Monday (2 days ago) for evaluation of colitis, which she reports having for approximately one year. She is followed by a microfilm operator at [facility]. The patient reports that biopsies were taken during the procedure. She also mentions having alpha gal allergy and hemorrhoids. Related Data Home Medications ?Medication ?Instructions ?Recorded ?Confirmed desogestrel 0.15 mg-ethinyl 1 tab PO DAILY 01/23/25 estradiol 0.03 mg tablet (Isibloom) dicyclomine 20 mg tablet 20 mg PO Q6H PRN Abdominal P ain 01/23/25 01/23/25 epinephrine 0.3 mg/0.3 mL See Rx Instructions .Route . COMPLEX 01/23/25 01/23/25 injection, auto-injector ondansetron 4 mg disintegrating 4 mg translingual Q8H PRN Nausea 01/23/25 01/23/25 tablet Previous Rx's ?Medication ?Instructions ?Recorded dicyclomine 20 mg tablet 20 mg PO BID #14 tabs potassium chloride 20 mEq 20 meq PO DAILY #7 tabs 12/26 07/20 tablet,extended release (K-Tab) promethazine 25 mg tablet 25 mg PO Q6H PRN nausea and 01/23/25 vomiting #20 tabs Allergies Allergy/AdvReac Type Severity Reaction Status Date / Time Alpha-Gal Allergy Unknown Verified 01/23/25 07:02 ([id number] [facility] ED 2 PFSH: Medical History (Updated 01/23/25 @ 20:24 by German Hollis MD) Colitis Anxiety Moderate major depression Family History Mother Hypertension Psychiatric illness MDD, anxiety Father Alcoholism Hyperlipidemia Hypertension CAD (coronary artery disease) Sister Diabetes Social History Smoking and tobacco/nicotine status: current every day tobacco/nicotine user e- cigarettes E-Cigarette Details: vaporizer device and with nicotine Second hand smoke exposure: No Alcohol intake: never Substance/Drug Use: never Current occupational exposures/hazards: No Sexually active: No Current gender identity: Female Physical Exam 2 Const: COMMON NORMALS: no acute distress, average body habitus, alert and well nourished GENERAL APPEARANCE: cooperative ORIENTATION/CONSCIOUSNESS: Yes awake HENMT: COMMON NORMALS: normocephalic and atraumatic HEAD & SCALP: n ormocephalic and atraumatic Eye: COMMON NORMALS: conjunctivae normal CONJUNCTIVA: Yes conjunctivae normal Neck/C-Spine: GENERAL: Yes normal visual inspection Resp: COMMON NORMALS: normal respiratory effort, No retractions and No use of accessory muscles Cardio: COMMON NORMALS: regular rhythm and Peripheral pulses 2+ throughout RHYTHM: regular rhythm PERIPHERAL PULSES: Peripheral pulses 2+ throughout GI: COMMON NORMALS: Soft to palpation PALPATION: Yes Soft to palpation O THER: Abdomen is soft and nondistended with minimal diffuse abdominal tenderness there is no guarding or rebound. No peritonitis. Extremity: COMMON NORMALS: full ROM and no pedal edema Neuro: COMMON NORMALS: no focal motor deficits SENSORIUM/ORIENTATION: Yes alert Skin: COMMON NORMALS: no rashes or lesions noted GENERAL SKIN EXAM: no rashes or lesions noted Course 2 Vital Signs: Vital signs: Vital Signs Temperature 98.5 F 01/23/25 16:28 Pulse Rate 83 01/23/25 18:23 Respiratory Rate 20 H 01/23/25 16:28 Blood Pressure 111/55 01/23/25 20:02 Pulse Oximetry 97 01/23/25 20:02 Oxygen Delivery Me thod Room Air 01/23/25 18:23 MDM - Abdominal Pain Medical Decision Making ROS: Constitutional: Positive for weakness and fatigue. Negative for fever. Gastrointestinal: Positive for severe abdominal pain, vomiting, and diarrhea. Last bowel movement was at 3 AM this morning, described as basically water. Negative for hematemesis. Patient unable to determine if blood in stool. Genitourinary: No reported dysuria or hematuria. Neurological: Positive for syncope (found unconscious on sidewalk). All other systems reviewed and negative or noncontributory. Allergies: - Alpha gal allergy - Allergic to Metoclopramide (Reglan) capsule PAST HISTORICAL DATA: PMH: Colitis diagnosed approximately 1 year ago (May) PSH: Tonsillectomy GI: Recent endoscopy and colonoscopy (2 days ago) Social: No information provided regarding tobacco, alcohol, or drug use INITIAL IMPRESSION AND PLAN: Given the history and presentation, the primary working diagnosis is abdominal pain with vomiting, possibly related to post-endoscopy/colonoscopy complications or exacerbation of underlying colitis. Additional considerations include cannabinoid hyperemesis syndrome (previously diagnosed), enteritis, intussusception, and electrolyte abnormalities. Based on this initial impression I will order: 1. IV fluid resuscitation with 1 liter normal saline 2. Antiemetics: Compazine 10 mg IV, Zofran 8 mg IV, Benadryl 50 mg IV 3. Repeat laboratory studies including CBC, CMP, lipase, and serum ketones 4. CT scan of abdomen and pelvis to evaluate for possible surgical pathology 5. Monospot test to evaluate splenomegaly TEST INTERPRETATIONS: CT Abdomen/Pelvis: - Questionable findings of mild enteritis - No evidence of appendicitis - Significant splenomegaly noted - Slight wall thickening of urinary bladder; cystitis not excluded - Short segment small bowel intussusception in left mid-abdomen (incidental finding) - No acute intra-abdominal pathology - No evidence of pancreatitis or ductal dilatation Laboratory Results: - WBC: 11.0 (elevated from 6.6 earlier today) - Hemoglobin: 15.8 g/dL (previously 15) - Hematocrit: 45% (previously 43%) - Platelets: 233,000/?L - Potassium: 3.3 mEq/L (low, unchanged from earlier) - Bicarbonate: 20 mEq/L (improved from 16 earlier today) - Calcium: 3.3 mg/dL - Lipase: 22 U/L (normal) - Serum ketones: Negative - Blood glucose: 80 mg/dL - Monospot: Negative CONSIDERED BUT NOT PERFORMED: Hospital admission CONSIDERED but NOT DONE due to stable vital signs, improved laboratory values, absence of acute surgical pathology on imaging, and patient's ability to tolerate oral intake after symptom improvement with medications. FINAL IMPRESSION: Based on all the above, my clinical impression is most compatible with mild enteritis with associated dehydration and hypokalemia, likely exacerbated by recent endoscopic procedures. The clinical picture is not currently suggestive of appendicitis, bowel obstruction, perforation, or other acute surgical emergency. Although other conditions were also considered, they were deemed unlikely based on the clinical information available. CLINICAL DISPOSITION: The patient's current condition is stable in my estimation and the most appropriate and indicated disposition at this time is discharge home with outpatient follow-up. The patient is safe for discharge home as she has shown clinical improvement after IV fluids and antiemetics, has no evidence of acute surgical pathology on imaging, and has improving laboratory values. Her abdominal examination is reassuring without signs of peritonitis. She has appropriate follow-up established with gastroenterology, and her symptoms can be managed with oral medications at home. The incidental findings on CT scan (splenomegaly and intussusception) are not acute emergencies requiring immediate intervention and can be addressed in the outpatient setting. RISK STRATIFICATION AND CLINICAL DECISION RULES APPLIED: No formal clinical decision rules were applied in this case. Risk stratification was based on clinical assessment, laboratory values, and imaging findings which demonstrated no acute surgical emergency. CASE SUMMARY: 19-year-old female with history of colitis presented with severe abdominal pain and persistent vomiting that began at 2 AM. She had been seen earlier in the day and diagnosed with cannabinoid hyperemesis but symptoms worsened, resulting in syncope. Patient had undergone endoscopy and colonoscopy two days prior for evaluation of her colitis. Physical examination revealed diffuse abdominal tenderness without peritoneal signs. CT abdomen/pelvis showed mild enteritis, incidental small bowel intussusception, and splenomegaly, but no acute surgical pathology. Laboratory studies revealed mild leukocytosis and persistent hypokalemia (3.3 mEq/L). Patient received IV fluids, antiemetics (Compazine, Zofran, Benadryl), with significant improvement in symptoms. She was discharged home with prescription for potassium supplementation (20 mEq daily) and antiemetics. Patient was counseled to follow up with her microfilm operator regarding the CT findings, particularly the splenomegaly, and to return to the ED for worsening symptoms. Lab Data I reviewed the patient's lab results. 01/23/25 18:17 01/23/25 18:17 Labs/Radiology: Radiology Impressions Abdomen/Pelvis CT 01/23/25 18:21 IMPRESSION: 1. Questionable findings of mild enteritis. 2. Significant splenomegaly. Recommend correlation with symptoms or Monospot test. 3. Slight wall thickening of the urinary bladder, cystitis not excluded. 4. Short segment small bowel intussusception in the left mid abdomen. This is typically an incidental, transient finding but can occasionally be a source of abdominal pain. Laboratory Results WBC 11.00 10^3/uL (4.5-13.0) 01/23/25 18:17 RBC 5.25 10^6/uL (3.85-5.65) 01/23/25 18:17 Hgb 15.80 g/dL (12.4-14.8) H 01/23/25 18:17 Hct 45.4 % (36-47) 01/23/25 18:17 MCV 86.5 fl (85-98) 01/23/25 18:17 MCH 30.1 pg (27-33) 01/23/25 18:17 MCHC 34.8 g/dL (30-55) 01/23/25 18:17 RDW 11.5 % (12.1-15.1) L 01/23/25 18:17 Plt Count 233 10^3/cmm (157-399) 01/23/25 18:17 MPV 10.4 fL (7.4-10.4) 01/23/25 18:17 Neut % (Auto) 74.7 % 01/23/25 18:17 Lymph % (Auto) 18.9 % 01/23/25 18:17 [place] % (Auto) 5.8 % 01/23/25 18:17 Eos % (Auto) 0.0 % 01/23/25 18:17 Baso % (Auto) 0.3 % 01/23/25 18:17 Neut # (Auto) 8.22 10^3/uL (1.8-8.0) H 01/23/25 18:17 Lymph # (Auto) 2.1 10^3/uL (1.5-6.5) 01/23/25 18:17 [place] # (Auto) 0.6 10^3/uL (0.2-0.9) 01/23/25 18:17 Eos # (Auto) 0.0 10^3/uL (0.0-0.8) 01/23/25 18:17 Baso # (Auto) 0.0 10^3/uL (0.0-0.1) 01/23/25 18:17 Nucleated RBC % (auto) 0 % 01/23/25 18:17 Nucleated RBCs # 0.0 /100WBC 01/23/25 18:17 Sodium 141 mmol/L (136-145) 01/23/25 18:17 Potassium 3.3 mmol/L (3.5-5.1) L 01/23/25 18:17 Chloride 101 mmol/L (98-107) 01/23/25 18:17 Carbon Dioxide 20 mmol/L (22-29) L 01/23/25 18:17 Anion Gap 23.3 (5-19) H 01/23/25 18:17 BUN 8 mg/dL (6-20) 01/23/25 18:17 Creatinine 0.6 mg/dL (0.5-0.9) 01/23/25 18:17 GFR Calculation 128.8 mL/min (90-130) 01/23/25 18:17 Glucose 80 mg/dL (65-115) 01/23/25 18:17 Calculated Osmolality 289 mOsm/kg (285-295) 01/23/25 18:17 Lactic Acid 1.7 mmol/L (0.5-2.2) 01/23/25 18:17 Calcium 10.0 mg/dL (8.5-10.5) 01/23/25 18:17 Magnesium 1.9 mg/dL (1.7-2.2) 01/23/25 18:17 Total Bilirubin 0.6 mg/dL (0.15-1.2) 01/23/25 18:17 AST 17 U/L (0-32) 01/23/25 18:17 ALT 12 U/L (0-33) 01/23/25 18:17 Alkaline Phosphatase 45 U/L (35-105) 01/23/25 18:17 Total Protein 8.5 g/dL (6.6-8.7) 01/23/25 18:17 Albumin 5.0 g/dL (3.5-5.2) 01/23/25 18:17 Globulin 3.5 g/dL (1.3-4.6) 01/23/25 18:17 Lipase 22 U/L (13-60) 01/23/25 18:17 Serum Ketones Negative (Negative) 01/23/25 18:17 All radiology interpretation(s) finalized by discharge Discharge Plan Discharge Patient Disposition: Home Clinical Impression: Abdominal pain, Nausea & vomiting, Acute hypokalemia Condition: Stable Prescriptions: New dicyclomine 20 mg tablet 20 mg PO BID Qty: 14 0RF potassium chloride [K-Tab] 20 mEq tablet extended release 20 meq PO DAILY Qty: 7 0RF No Action desogestrel-ethinyl estradiol [Isibloom] 0.15-0.03 mg tablet 1 tab PO DAILY dicyclomine 20 mg tablet 20 mg PO Q6H PRN (Reason: Abdominal Pain) epinephrine 0.3 mg/0.3 mL auto-injector See Rx Instructions .ROUTE .COMPLEX Rx Instructions: INJECT 0.3MG INTO THE MUSCLE ONCE DAILY NEEDED FOR ANAPHYLAXIS. ondansetron 4 mg tablet,disintegrating 4 mg translingual Q8H PRN (Reason: Nausea) promethazine 25 mg tablet 25 mg PO Q6H PRN (Reason: nausea and vomiting) Qty: 20 0RF Discharge Orders: Discharge ED (Routine); Ordered 01/23/25 Ordered By: German Hollis Referrals: Dalton Izaguirre MD [Primary Care Provider, [facility]] Discharge Diet: Advance as tolerated Patient Instructions: Abdominal Pain (ED), Opioid Safety, Pain Management, Patient Portal & Jas Instructions Activity Restrictions/Additional Instructions: Medications: 1. Potassium chloride 20 mEq daily - Take as directed to correct low potassium levels Follow-up Instructions: 1. Follow up with your microfilm operator within [address] findings and management of your colitis 2. Continue your regular medications including control Diet: 1. Start with clear liquids and advance to bland diet as tolerated 2. Avoid spicy, greasy, or irritating foods 3. Stay well hydrated with water, sports drinks, or clear broths Return to the Emergency Department immediately if you experience: 1. Severe, worsening abdominal pain 2. Persistent vomiting despite taking anti-nausea medication 3. Inability to keep fluids down for more than 12 hours 4. High fever (temperature > 101.5?F) 5. Bloody or black stools 6. Dizziness, lightheadedness, or fainting 7. Any other concerning symptoms Print Language: Bulgarian Coding Level of Care Code ED Tumbling Machine Operator for Joselyn Stone
[2025-01-23] MEDS: haloperidol inj 5 mg/mL INJ 1 mL IVP (20:25)
[2025-01-23 20:45] VITALS: BP 111/55; PULSE 66; RESP 16; O2SAT 92
--- NOTE | 2025-01-23 20:47 | PC.NURSE ---
Nurse gave pt the choice to be wheeled out of the Er in a wheelchair. Pt states she could walk. Pts family acted mad towards nurse. Nurse offered again to wheel pt out and pt denied offer.
--- OUTSIDE RECORDS SUMMARY | 2025-01-24 07:03 | XMS_ITS | Clinical Summary ---
Author Organization [facility] Address [address] Ch: [place] [address] Care Team Providers Care Highway Engineer Name Role Phone Unavailable Primary Care Provider Unavailabl e Allergies Active Allergy Reactions Criticality Noted Date Comments Alpha-Gal (Lujeantqm-Btxgi-5,3-Galactose) Abdominal Pain High 12/19/2024 Medications citalopram (CeleXA) [...] CDT - 01/21/2025 2:15 PM CDT Surgery [address] [address] Bj Cullen MD COLONOSCOPY 01/21/2025 12:46 PM CDT Anesthesia Event [address] [address] Magnus Beltran, Shey Pace CRNA 01/21/2025 10:32 AM CDT - 01/21/2025 2:57 PM CDT Hospital Encounter [address] [place] [address] jB Cullen MD Alpha-gal syndrome Discharge Disposition: Home or Self Care 01/15/[address] [place] [address] Bj Cullen MD Surgery 12/31/2024 External Device Data [facility] ABSTRACTION Provider, Abstract 12/31/2024 External Device Data [facility] ABSTRACTION Provider, Abstract 12/31/2024 External Device Data [facility] ABSTRACTION Provider, Abstract 12/24/2024 8:59 AM CDT - 12/24/2024 11:59 PM CDT Hospital Encounter [facility] [address] [place] [address] Bj Cullen MD Discharge Disposition: Home or Self Care 12/24/2024 External Device Data [facility] ABSTRACTION Provider, Abstract 12/19/2024 Results Follow-Up [address] [place] [address] Bj Cullen MD CBC WITH DIFFERENTIAL, COMPREHENSIVE METABOLIC PANEL, ALPHA-GAL PANEL, Additional followed-up results: 3 12/16/2024 9:30 AM CDT Office Visit [address] [place] [address] Bj Cullen MD Pre-operative clearance (Primary Dx); History of colitis; Hematochezia; Alternating constipation and diarrhea; Easy bruising; Nausea and vomiting, unspecified vomiting type; Hematemesis with nausea; Melena; Right lower quadrant abdominal pain; Right upper quadrant abdominal pain; Periumbilical abdominal pain 12/16/2024 Orders Only [address] [place] [address] Bj Cullen MD 12/11/2024 External Device Data [facility] ABSTRACTION Provider, Abstract 12/10/2024 External Device Data [facility] ABSTRACTION Provider, Abstract 12/10/2024 External Device Data [facility] ABSTRACTION Provider, Abstract 12/03/2024 9:27 PM CDT - 12/04/2024 12:14 AM CDT Emergency [facility] Emergency Medicine [address] [place] [address] Malachi Jones MD Generalized abdominal pain (Primary [...] on file 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 Gender Identity Not on file Sexual Orientation [...] Procedure Name Priority Date/Time Associated Diagnosis Comments LA EGD DILATION GASTRIC/DUODENAL STRICTURE 01/21/2025 1:21 PM CDT History of colitis Melena Hematochezia Alternating constipation and diarrhea Easy bruising LA EGD BALLOON DILATION ESOPHAGUS <30 MM DIAM 01/21/2025 1:21 PM CDT History of colitis Melena Hematochezia Alternating constipation and diarrhea Easy bruising LA EGD TRANSORAL BIOPSY SINGLE/MULTIPLE 01/21/2025 1:21 PM CDT History of colitis Melena Hematochezia Alternating constipation and diarrhea Easy bruising LA COLSC FLX W/REMOVAL LESION BY HOT BX FORCEPS 01/21/2025 1:21 PM CDT History of colitis Melena Hematochezia Alternating constipation and diarrhea Easy bruising LA COLSC FLX W/RMVL OF TUMOR POLYP LESION SNARE TQ 01/21/2025 1:21 PM CDT History of colitis Melena Hematochezia Alternating constipation and diarrhea Easy bruising LA COLORECTAL SCRN HI RISK IND 01/21/2025 1:21 PM CDT History of colitis Melena Hematochezia Alternating constipation and diarrhea Easy bruising LA COLONOSCOPY W/BIOPSY SINGLE/MULTIPLE 01/21/2025 1:21 PM CDT History of colitis Melena Hematochezia Alternating constipation and diarrhea Easy bruising LA COLONOSCOPY FLX DX W/COLLJ SPEC WHEN PFRMD [...] CDT) CASE REPORT Surgical Pathology Report Case: [id number] Authorizing Provider: Bj Cullen Collected: 01/21/2025 01:02 PM MD [place] Ordering Location: [facility] Received: 01/22/2025 06:40 AM Outpatient Treatment Center Pathologist: Jose Medina MD Specimens: A) - Stomach, antrum B) - Stomach, body C) - GE junction 9:42 AM CDT [facility] FINAL DIAGNOSIS A. Stomach, antrum, biopsy - benign gastric mucosa with no significant inflammation, superficial biopsy. / B. Stomach, body, biopsy - benign gastric mucosa with no significant inflammation. / C. GE junction, biopsy - benign gastric mucosa with mild chronic inflammation - no evidence of goblet cell metaplasia, dysplasia, or malignancy. Jose Medina MD [id number] 9:42 AM CDT [facility] at 0942 CDT GROSS DESCRIPTION A. Received in formalin labeled Mandaeism -stomach biopsy of antrum is a single fragment of peña-pink soft tissue, 0.2 cm in greatest dimension. The specimen is submitted entirely in A1. B. Received in formalin labeled Mandaeism -stomach biopsy of gastric body is a single fragment of peña-pink soft tissue, 0.2 cm in greatest dimension. The specimen is submitted entirely in B1. C. Received in formalin labeled Mandaeism -GE junction biopsy is a single fragment of peña-pink soft tissue, 0.2 cm in greatest dimension. The specimen is submitted entirely in C1. Grossed by: Haritha Villeda MS, PA (ASCP)CM 5 9:42 AM CDT [facility] OPERATIVE PROCEDURE 1: COLONOSCOPY 2: ESOPHAGOGASTRODUODENOSCO PY 5 9:42 AM CDT [facility] CLINICAL INFORMATION Z87.19-History of colitis K92.1-Melena K92.1-Hematochezia R19.8-Alternating constipation and diarrhea R23.3-Easy bruising 5 9:42 AM CDT [facility] COMMENT The [employer] voice-activated dictation system may have been used [...] determined by the [facility] in compliance with CLIA'88 regulations. Some of these tests rely on the use of analyte specific reagents and are subject to specific labeling requirements by the FDA. All controls show appropriate reactivity. This testing was developed by the [facility]. It has not been cleared or approved by the FDA. The FDA has determined that such clearance or approval is not necessary. 5 9:42 AM CDT [facility] Tissue ENTIRE STOMACH / Unknown Collection / Unknown 01/21/2025 1:02 PM CDT 01/22/2025 6:40 AM CDT Tissue specimen (specimen) ENTIRE STOMACH / Unknown 01/21/2025 1:02 PM CDT 01/22/2025 6:40 AM CDT Tissue specimen (specimen) (GE junction) 01/21/2025 1:03 PM CDT 01/22/2025 6:40 AM CDT us Bj Alanis MD PATHOLOGY/CYTOL OGY ORDERABLES Final Result [facility] CLIA # [id number] [address] [place] [address] * (ABNORMAL) HCG QUALITATIVE, URINE (01/21/2025 11:11 AM CDT) Only the most recent of2 resultswithin the time period is included. HCG QUAL URINE Negative Negative 01/21/2025 11:16 AM CDT [facility] COLOR UA Dark Yellow Pale to Dark Yellow 01/21/2025 11:16 AM CDT [facility] CLARITY UA Slightly Cloudy(A) Clear 01/21/2025 11:16 AM CDT [facility] Urine URINE SPECIMEN OBTAINED BY CLEAN CATCH PROCEDURE / Unknown Collection / Unknown 01/21/2025 11:11 AM CDT 01/21/2025 11:11 AM CDT us Bj Alanis MD URINE ORDERABLE S Final Result [facility] CLIA # [id number] [address] [place], [place] [id number] * US ABDOMEN LIMITED (12/24/2024 9:27 AM [...] CDT) ALLERGEN BEEF 2.01(H) kU/L [facility], ALLERGEN BEEF (F27) CLASS 2 [facility] [facility], FINNEY (F88) IGE 0.78(H) kU/L [facility] [facility], ALLERGEN FINNEY (F88) CLASS 2 [facility], ALLERGEN PORK 1.19(H) kU/L [facility], ALLERGEN PORK (F26) CLASS 2 [facility], GALACTOSE - ALPHA -1, 3 - GALACTOSE, IGE 2.95(H) <0.10 kU/L [facility], Comment: Results above 0.1 kU/L indicate an allergen-specific IgE sensitization to dowzywfds-z-1,3-galactose, and such patients are at risk for [...] method. Additional information can be found at http://www.[employer] [place].[employer] ALLERGY PANEL INTERP [facility], Comment: Specific Level of Allergen IGE [...] analytical performance characteristics have been determined by [facility]. It has not been cleared or approved by the U.S. Food and Drug Administration. This assay has been validated pursuant to the CLIA regulations and is used for clinical purposes. Test Performed at: [facility], [address] [place] [address] Liv Rader MD,PhD,ROBERT FERNANDEZ Blood 12/16/2024 11:0 4 AM CDT 12/16/2024 11:04 AM CDT Bj Alanis MD CHEMISTRY ORDER LINETTE Final Result Performing Organization Address [facility] Co de Phone Number [facility] [phone] [facility], [address] [place] [address] * CELIAC DISEASE ANTIBODIES (12/16/2024 11:04 AM CDT) CELIAC SEROLOGY INTERP [facility] Comment: No serological evidence for celiac disease is present. tTg may normalize in individuals with celiac disease who maintain a gluten free diet. If high suspicion of celiac disease, consider HLA DQ2 and DQ8 testing to rule out celiac disease. TRANSGLUTAMINASE IGA AB <1.0 U/mL [facility] Comment: Value Interpretation ----- <15.0 Antibody not detected > or = 15.0 Antibody detected IGA 233 47 - 310 mg/dL [facility] Comment: Test Performed at: [facility] [address] [address] Malachi Brooke Blood 12/16/2024 11:0 4 AM CDT 12/16/2024 11:04 AM CDT us Bj Alanis MD CHEMISTRY ORDER LINETTE Final Result [facility] [phone] [facility] [address] [place] [address] * (ABNORMAL) CBC WITH DIFFERENTIAL (12/16/2024 11:04 [...] perform a manual review. Test Performed at: [facility] [address] [facility] [place] [address] Carrie Cottrell MD Blood 12/16/2024 11:0 4 AM CDT 12/16/2024 11:04 AM CDT Bj Alanis MD HEMATOLOGY [facility] Final Result Performing Organization Address City/[facility]/ZIP Co de Phone Number [facility] [phone] [facility] [address] [place] [address] * PROTIME-INR (12/16/2024 11:04 AM CDT) INR 1.0 [facility] Comment: Reference Range 0.9-1.1 Moderate-intensity Warfarin Therapy 2.0-3.0 Higher-intensity Warfarin Therapy 3.0-4.0 PROTIME 10.7 9.0 - 11.5 sec [facility] Comment: For additional information, please refer to http://education.Sharypic/faq/CWH932 (This link is being provided for informational/ educational purposes only.) Test Performed at: [facility] [address] [facility] [place] [address] Carrie Cottrell MD Blood 12/16/2024 11:0 4 AM CDT 12/16/2024 11:04 AM CDT Bj Alanis MD HEMATOLOGY ORDE [facility] Final Result [facility] [phone] [facility] [address] [place] [address] * COMPREHENSIVE METABOLIC PANEL (12/16/2024 11:04 AM [...] [facility] Comment: Test Performed at: [facility] [address] [place] [address] Carrie Cottrell MD Blood 12/16/2024 11:0 4 AM CDT 12/16/2024 11:04 AM CDT Bj Alanis MD CHEMISTRY ORDER LINETTE Final Result [facility] [phone] [facility] [address] [place] [address] * CT ABDOMEN PELVIS W CONTRAST (12/03/2024 [...] - 60 U/L 12/03/2024 11:02 PM CDT [facility] Blood Collection / Unknown 12/03/2024 10:15 PM CDT 12/03/2024 10:25 PM CDT Malachi Jones MD CHEMISTRY ORDERABLES Fin al Result [facility] CLIA # [id number] [address] [place] [address] * (ABNORMAL) URINALYSIS MICROSCOPY ONLY (12/03/2024 9:31 PM CDT) WBC UA 6-10(A) 0 - 2 /hpf 12/03/2024 10:30 PM CDT [facility] RBC UA 3-5(A) 0 - 2 /hpf 12/03/2024 10:30 PM CDT [facility] BACTERIA UA 2+(A) Negative /hpf 12/03/2024 10:30 PM T [facility] EPITHELIAL CELLS, URINE >25(A) 0 - 5 /hpf 12/03/2024 10:30 PM T [facility] Urine URINE SPECIMEN OBTAINED BY CLEAN CATCH PROCEDURE / Unknown Collection / Unknown 12/03/2024 9:31 PM CDT 12/03/2024 9:45 PM CDT [facility] - 12/03/2024 10:30 PM CDT Urine specimen not acceptable for culture. us Malachi Jones MD URINE ORDERABLES Final R esult [facility] # [id number] [address] [place] [address] * (ABNORMAL) URINALYSIS WITH REFLEX MICROSCOPIC (12/03/2024 9:31 PM CDT) COLOR UA Yellow Pale to Dark Yellow 12/03/2024 10:30 PM [facility] CLARITY UA Slightly Cloudy(A) Clear 12/03/2024 10:30 PM [facility] SPECIFIC GRAVITY UA <=1.005 1.003 - 1.035 12/03/2024 10:30 PM [facility] PH UA 6.5 5.0 - 8.0 12/03/2024 10:30 PM [facility] LEUKOCYTE ESTERASE UA 1+(A) Negative 12/03/2024 10:30 PM [facility] NITRITE UA Positive(A) Negative 12/03/2024 10:30 PM [facility] PROTEIN UA Negative Negative 12/03/2024 10:30 PM [facility] GLUCOSE UA Negative Negative 12/03/2024 10:30 PM [facility] KETONES UA 2+(A) Negative 12/03/2024 10:30 PM CDT [facility] UROBILINOGEN UA 0.2 <2.0 mg/dL 10:30 PM CDT [facility] BILIRUBIN UA Negative Negative 12/03/2024 10:30 PM CDT [facility] BLOOD UA 2+(A) Negative 12/03/2024 10:30 PM CDT [facility] Urine URINE SPECIMEN OBTAINED BY CLEAN CATCH PROCEDURE / Unknown Collection / Unknown 12/03/2024 9:31 PM CDT 12/03/2024 9:45 PM CDT Malachi Jones MD URINE ORDERABLES Final R esult [facility] CLIA # [id number] [address] [place], [place] [id number] from Last 3 Months Insurance [facility] MEDICAID AETNA OPEN CHOICE [address] [place] [address] [facility] MEDICAID Advance Directives For more information, please contact: [phone] * Full Code (Latest Code Status on File) Date Activated Date Inactivated Comments 01/21/2025 11:16 AM 01/21/2025 5:03 PM * Full Code Date Activated Date Inactivated Comments 01/21/2025 11:01 AM 01/21/2025 11:16 AM
--- OUTSIDE RECORDS SUMMARY | 2025-01-24 07:03 | XMS_ITS | Encounter Summary ---
Author Organization [facility] Address 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
== END 2025-01-23 20:46 | disposition home or self-care (01) ==
PROVIDERS: Emergency Provider Student in an Organized Health Care Education/Training Program; PCP Family Medicine
DX: R10.9 Unspecified abdominal pain (principal); R11.2 Nausea with vomiting, unspecified; E87.6 Hypokalemia; F17.290 Nicotine dependence, other tobacco product, uncomplicated
CPT/HCPCS: 36415; 74177; 80053; 82009; 83605; 83690; 83735; 85025; 96374; 96375; 99285; J0780; J1200; J1630; J2405; J7030; J9999